=== PATIENT | male | born 1970 | race Caucasian/White ===

== ENCOUNTER 2023-11-29 09:20 | Outpatient (OUT) | payer OTHER, SELFPAY ==
--- NOTE | 2023-11-29 09:31 | MR_ITS ---
[address] [address] Patient Name: JENARO EVANS MRN: [facility]:[id number] date: 1970 Sex: M Assigned Patient Location: MRI Current Patient Location: MRI Accession/Order Number: [id number] Exam Date: 11/29/2023 09:40 Report Date: 11/29/2023 10:41 At the request of: TYE RENE Procedure: MR cervical spine wo con EXAMINATION: MR cervical spine wo con HISTORY: Degenerative Disc Disease Cervical M50.30 COMPARISON: No relevant comparison available. TECHNIQUE: A variety of imaging planes and parameters were utilized for visualization of suspected pathology. FINDINGS: CRANIOCERVICAL AREA: Normal foramen magnum with no Chiari malformation. PARASPINAL AREA: Normal with no visible mass. BONES: Reversal of normal cervical lordosis. Signal dropout consistent with anterior metallic hardware fusion C5-C6 CORD: Normal caliber, contour, and signal intensity. CERVICAL DISC LEVELS: C2-C3: Early degenerative disc disease is present without focal protrusion or neural impingement. C3-C4: Early degenerative disc disease is present without focal protrusion or neural impingement. C4-C5: Early degenerative disc disease is present without focal protrusion or neural impingement. C5-C6: Anterior fusion with resultant metallic susceptibility artifact. Mild posterior disc/osteophyte complex no central canal or right foraminal stenosis. Moderate narrowing of the left neural foramen secondary to degenerative facet osteoarthropathy C6-C7: Moderate to severe disc space narrowing and disc desiccation. Moderate diffuse disc/osteophyte complex. Moderate to severe bilateral foraminal stenosis. Mild narrowing of the central canal down to 8.5 mm in anterior posterior dimension C7-T1:. No significant disc/facet abnormality, spinal stenosis, or foraminal stenosis. MR/MR cervical spine wo con IMPRESSION: Degenerative changes C5-C6 and C6-C7. This results in moderate to severe bilateral C6-C7 foraminal stenosis Electronically authenticated by: JERED STERN Date: 11/29/2023 10:41
== END 2023-11-29 09:21 | disposition home or self-care (01) ==
LOC: MRI 09:23
PROVIDERS: PCP Nurse Practitioner; Visit Provider Nurse Practitioner
DX: M50.30 Other cervical disc degeneration, unspecified cervical region (principal); M50.322 Other cervical disc degeneration at C5-C6 level; M50.323 Other cervical disc degeneration at C6-C7 level
CPT/HCPCS: 72141

== ENCOUNTER 2023-12-26 09:17 | Outpatient (OUT) | payer OTHER, SELFPAY ==
--- NOTE | 2023-12-26 09:20 | CT_ITS ---
The [address] [address] Patient Name: JENARO EVANS MRN: [facility]:[id number] date: 1970 Sex: M Assigned Patient Location: CT Current Patient Location: CT Accession/Order Number: [id number] Exam Date: 12/26/2023 09:30 Report Date: 12/26/2023 14:42 At the request of: YTE RENE Procedure: CT chest wo con EXAMINATION: CT chest wo con HISTORY: lung nodule R91.1 COMPARISON: 09/21/2022, 01/13/2022 TECHNIQUE: Multi-planar CT images were created with IV contrast. Axial, Coronal, and Sagittal images. Dose reduction techniques were achieved by using automated exposure control and/or adjustment of mA and/or kV according to patient size and/or use of iterative reconstruction technique. FINDINGS: LUNGS: Stable nodular and linear opacity in the medial left upper lobe stable in size and configuration from the prior exam. Mild paraseptal emphysema with an upper lobe predominance. No new significant pulmonary nodule or mass PLEURA: No mass, effusion, or pneumothorax. VASCULATURE: No abnormality. MICHELLE: No mass or adenopathy. MEDIASTINUM: No mass or adenopathy. CARDIAC: No enlargement or pericardial effusion. Mild coronary atherosclerosis AORTA: Aneurysm of the ascending thoracic aorta measuring 4.1 cm in diameter CHEST WALL: No mass or axillary adenopathy. BONES: No bone lesion or fracture. LIMITED ABDOMEN: Bilateral low-density adrenal masses, stable OTHER: Negative. CT/CT chest wo con IMPRESSION: Stable left upper lobe nodular and linear pulmonary density. Lack of foreign exchange student coordinator the course of nearly 2 years suggests a benign process Electronically authenticated by: JERED STERN Date: 12/26/2023 14:42
--- OUTSIDE RECORDS SUMMARY | 2023-12-26 09:21 | XMS_ITS | CCD ---
Author Name Unknown Address [address] [place] [address] Organization [facility] Care Team Providers Care Aircraft Dispatcher Name Role Phone Unavailable Primary Care Provider UnavailFABIÁN Siegel Referring Unavailable FABIÁN CAMPBELL Admitting Unavailable FABIÁN CAMPBELL Attending Unavailable MARYLIN MORALES Primary Care Unavailable Marylin Morales Primary Care Provider Cally Roy Unavailable NO FAMILY, PHYSICIAN Primary Care Provider Unava ilable FLORENCIO Roy Attending Provider AICHHOLZ, LOAN EXAMINER MARYLIN Admitting Unavailable AICHHOLZ, LOAN EXAMINER MARYLIN Attending Unavailable AICHHOLZ, LOAN EXAMINER MARYLIN Primary Care Unavailable DR JERED STERN V Consulting Unavailable AICHHOLZ, LOAN EXAMINER MARYLIN Consulting Unavailable AICHHOLZ, LOAN EXAMINER MARYLIN Admitting Unavailable AICHHOLZ, LOAN EXAMINER MARYLIN Attending Unavailable AICHHOLZ, LOAN EXAMINER MARYLIN Primary Care Unavailable DR JERED STERN V Consulting Unavailable AICHHOLZ, LOAN EXAMINER MARYLIN Consulting Unavailable AICHHOLZ, LOAN EXAMINER MARYLIN Admitting Unavailable AICHHOLZ, LOAN EXAMINER MARYLIN Attending Unavailable AICHHOLZ, LOAN EXAMINER MARYLIN Primary Care Unavailable AICHHOLZ, LOAN EXAMINER MARYLIN Consulting Unavailable DR CHAPARRO RIVER Consulting Unavailable AICHHOLZ, LOAN EXAMINER MARYLIN Primary Care Unavailable DR ELIJAH ANDREW Admitting UnavailDR ELIJAH Burciaga Attending UnavailDR KRISTIN Clement JR Admitting Unavailrohini GRACE JR, DR KRISTIN Hardy Attending Unavailabl e AICHHOLZ, LOAN EXAMINER MARYLIN Primary Care Unavailable GRACE JR, DR KRISTIN L Consulting Unavailabl e ORALIA MORALES MARYLIN Admitting Unavailable ORALIA MORALES MARYLIN Attending Unavailable ORALIA MORALES Primary Care Unavailable ORALIA MORALESA Consulting Unavailable DR CHAPARRO RIVER Consulting Unavailable Clara Solano Unavailable Cally Roy Attending Unavailable Cally Roy Admitting Unavailable NO FAMILY, PHYSICIAN Primary Care Unavailable MARYLIN MORALES Attending Unavailable MARYLIN MORALES Attending Unavailable Cherelle [employer] FRY COOK-ORALIA, Marylin Primary Care Provider Terrance Davis MD Primary Care Provider [phone] Carmen PILLAR WORKER, Marylin Unavailable SAV ROCHA Referring Unavailable MARYLIN VILLARREAL Primary Care Unavailable JULES AYALA Attending Unavailable TAYLOR ANDUJAR Referring Unavailable MARYLIN VILLARREAL Primary Care Unavailable Medications Current Medications Medication Drug Class(es) Dates Sig (Normalized) Sig (Original) acetaminophen 500 mg oral tablet (1 source) take 1 tablet by mouth every six hours as needed for pain acetaminophen (TYLENOL) 500 MG tablet Take 500 mg by mouth every 6 hours as needed for Pain 0 Active cyclobenzaprine hydrochloride 5 mg oral tablet (1 source) Muscle Relaxant Start: 06-28-2022 take 1 tablet by mouth every eight hours Cyclobenzaprine HCl 5 MG 1 tablet as needed Orally Three times a day Jun, Active diazePAM (1 source) Benzodiazepine Valium Active twice-daily diclofenac epolamine 0.013 mg/mg medicated patch (2 sources) Nonsteroidal Anti-inflammatory Drug diclofenac epolamine (FLECTOR) 1.3 % patch [address] 1 patch on the skin. 0 Active docusate sodium 50 mg / sennosides, longterm 8.6 mg oral tablet (2 sources) Start: 01-15-2020 take 1 tablet by mouth twice daily sennosides-docusate sodium (SENOKOT-S) 8.6-50 MG tablet Take 1 tablet by mouth 2 times daily 60 tablet 0 01/15/2020 Active Start: 01-14-2020 take 1 tablet by kourtney twice daily 1 tablet, Oral, 2 TIMES DAILY, First dose on Tue01/14/20 at 2100, Post-op gabapentin 300 mg oral capsule (10 sources) Anti-epileptic Agent Start: 01-15-2020 take 600 mg by mouth once daily before breakfast 600 mg, Oral, DAILY BEFORE BREAKFAST, First dose on Tue01/15/20 at 0700, Post-op Start: 01-14-2020 take 1200 mg by mouth once blanca ly 1,200 mg, Oral, NIGHTLY, First dose on Tue01/14/20 at 2100, Post-op take 6 capsules by [facility] three times daily gabapentin (NEURONTIN) 100 mg capsule Take 6 capsules (600 mg total) by mouth 3 (three) times a day. 0 Active take 1 tablet by kourtney th in the morning gabapentin (Neurontin) 600 MG tablet Take 600 mg by mouth in the morning. 0 Active take 1 capsule by mo ut three times daily gabapentin (NEURONTIN) 100 mg capsule Take 100 mg by mouth 3 (three) times a day. 0 Active take 2 tablets by mo [facility] once daily gabapentin (NEURONTIN) 600 MG tablet Take 1,200 mg by mouth nightly. 0 Active HYDROmorphone (DILAUDID) injection 0.25 mg (1 source) Start: 01-14-2020 HYDROmorphone (DILAUDID) injection 0.25 mg ibuprofen 800 mg oral tablet (5 sources) Nonsteroidal Anti-inflammatory Drug take 1 tablet by mouth every six hours as needed for pain ibuprofen (ADVIL,MOTRIN) 800 mg tablet Take 1 tablet (800 mg total) by mouth every 6 (six) hours as needed for pain. 0 Active Motrin Active take 1 tablet by mouth once santhosh y ibuprofen (ADVIL;MOTRIN) 800 MG tablet Take 800 mg by mouth daily 0 Active methylPREDNISolone 4 mg oral tablet (1 source) Corticosteroid Start: 06-28-2022 methylPREDNISolone 4 MG as directed Orally Once a day for 6 days Jun, Active 24 hr nicotine 0.583 mg/hr transdermal system (1 source) Cholinergic Nicotinic Agonist Start: 01-14-2020 nicotine (NICODERM CQ) 14 MG/24HR 1 patch NONFORMULARY (1 source) NONFORMULARY Fernando e by mouth daily testosterone 0 Active 2 ml ondansetron 2 mg/ml injection (2 sources) Serotonin-3 Receptor Antagonist Start: 01-14-2020 End: 01-14-2020 ondansetron (ZOFRAN) injection 4 mg oxyCODONE hydrochloride 20 mg oral tablet (8 sources) Opioid Agonist Start: 01-14-2020 take 20 mg by mouth every four hours as needed for pain 20 mg, Oral, EVERY 4 HOURS PRN, Pain Moderate (4-6), Pain Severe (7-10), Starting Tue01/14/20 at 1443, Post-op take 1 tablet by mouth once oxyC ODONE (OxyCONTIN) 20 mg 12 hr tablet Take 1 tablet (20 mg total) by mouth every 12 (twelve) hours. 0 Active oxyCODONE ER (Ox yCONTIN) 20 MG 12 hr tablet 20 mg in the morning and 20 mg at noon and 20 mg in the evening and 20 mg before bedtime. Do not crush, chew, or split.. 0 Active take 1 tablet by mouth every six hours oxyCODONE HCl 20 MG 1 tablet as needed Orally 4 times a day Active take 1 tablet by mouth four time s daily oxyCODONE (OXY-IR) 15 MG immediate release tablet Take 15 mg by mouth 4 times daily. 0 Active polyethylene glycol 3350 62112 mg powder for oral solution (1 source) Osmotic Laxative Start: 01-14-2020 17 g, Oral, D AILY, First dose on Tue01/14/20 at 2100, Post-op predniSONE 20 mg oral tablet (2 sources) Start: 11-22-2023 predniSONE (De ltasone) 20 MG tablet Indications: DDD (degenerative disc disease), cervical 1 pill three times daily for 3 days, then 1 pill twice a day for 3 days, then 1 pill once day for 3 days Take with food 18 tablet 0 11/22/2023 Active predniSONE Activ e QUEtiapine 25 mg oral tablet (1 source) Atypical Antipsychotic take 1 tablet by mouth at bedtime QUEtiapine (SEROquel) 25 MG tablet Take 25 mg by mouth at bedtime 0 Active 3 ml sodium chloride 9 mg/ml injection (3 sources) Start: 0 10 mL, Intravenous, EVERY 12 HOURS SCHEDULED (2 times per day), First dose on Tue01/14/20 at 2100, Post-op Start: 01-14-2020 Intravenous, a t 75 mL/hr, CONTINUOUS, Starting Tue01/14/20 at 1500, Post-op Start: 01-14-2020 take 10 mL intravenous route o nce 10 mL, Intravenous, PRN, Line Care, Starting 01/14/20 at 1443 After every IV line use Post-op tiZANidine 4 mg oral tablet (3 sources) Central alpha-2 Adrenergic Agonist Start: 11-22-2023 take 1 tablet by mouth once tiZANidine (Zanaflex) 4 MG tablet Indications: Musculoskeletal Pain Take 1 tablet (4 mg) by mouth every 12 (twelve) hours if needed for muscle spasms for up to 15 days May cause drowsiness 30 tablet 0 11/22/2023 Active Start: 01-15-2020 take 1 tablet by kourtney th every eight hours as needed for muscle spasms tiZANidine (ZANAFLEX) 4 MG tablet Take 1 tablet by mouth every 8 hours as needed (spasm) 50 tablet 0 01/15/2020 Active Start: 01-14-2020 take 4 mg by mouth e very eight hours as needed for muscle spasms 4 mg, Oral, EVERY 8 HOURS PRN, Muscle spasms, Starting 01/14/20 at 1443, Post-op Wrist Splint/Right XL - (1 source) Start: 10-04-2022 Wrist Splint/R ight XL - as directed diagnosis: carpal tunnel right wrist Sep, Active Completed/Discontinued Medications Medication Drug Class(es) Dates Sig (Normalized) Sig (Original) calcium chloride 0.0014 meq/ml / potassium chloride 0.004 meq/ml / sodium chloride 0.103 meq/ml / sodium lactate 0.028 meq/ml injectable solution (1 source) Start: 01-14-2020 End: 01-14-2020 lactated ringers infusion ceFAZolin (ANCEF) 2 g in dextrose 5 % 50 mL IVPB (1 source) Start: 01-14-2020 End: 01-15-2020 2 g, Intravenous, EVERY 8 HOURS, 2 doses, First dose on Tue01/14/20 at 1600, Last dose on Tue01/15/20 at 0000, Post-op dexamethasone phosphate 10 mg/ml injectable solution (1 source) Corticosteroid Start: 01-14-2020 End: 01-15-2020 6 mg, Intravenous, EVERY 8 HOURS, First dose on Tue01/14/20 at 1500, For 3 doses, Post-op 2 ml fentaNYL 0.05 mg/ml injection (1 source) Opioid Agonist Start: 01-14-2020 End: 01-14-2020 fentaNYL (SUBLIMAZE) injection 50 mcg 1 ml HYDROmorphone hydrochloride 2 mg/ml cartridge (3 sources) Opioid Agonist Start: 01-14-2020 End: 01-14-2020 HYDROmorphone (DILAUDID) injection 0.5 mg Start: 01-14-2020 End: 01-14-2020 HYDROmorphone (DILAUDID) inj ection 0.5 mg Start: 01-14-2020 End: 01-14-2020 HYDROmorphone (DILAUDID) 2 M G/ML injection 2 ml metoclopramide 5 mg/ml prefilled syringe (2 sources) Dopamine-2 Receptor Antagonist Start: 01-14-2020 End: 01-14-2020 metoclopramide (REGLAN) injection 10 mg Start: 01-14-2020 End: 01-14-2020 metoclopramide (REGLAN) 5 MG /ML injection Problems Active Problems Problem Classification Problem Date Documented Date Episodic/Chronic Abdominal pain (4 sources) Generalized abdominal pain; Translations: [GENERALIZED ABDOMINAL PAIN] Onset: 08-04-2022 Episodic Acute bronchitis (2 sources) Acute bronchitis; Translations: [Acute bronchitis] Episodic Open wounds of extremities (1 source) Laceration without foreign body of right thumb without damage to nail, subsequent encounter; Translations: [Laceration without foreign body of right thumb without damage to nail, subsequent encounter] Onset: 10-14-2023 Episodic Osteoarthritis (2 sources) Arthritis of acromioclavicular joint; Translations: [Primary osteoarthritis, left shoulder] Chronic Other connective tissue disease (1 source) Weakness of left hand; Translations: [Other symptoms and signs involving the musculoskeletal system] 12-16-2023 Episodic Other connective tissue disease (1 source) Other symptoms and signs involving the musculoskeletal system; Translations: [Other symptoms and signs involving the musculoskeletal system] Onset: 12-16-2023 Episodic Other endocrine disorders (4 sources) Other specified disorders of adrenal gland; Translations: [OTHER SPEC DISORDERS ADRENAL GLAND] Onset: 11-20-2021 Chronic Other lower respiratory disease (1 source) Nodule of lung; Translations: [Solitary pulmonary nodule] Onset: 12-15-2023 12-15-2023 Episodic Other nervous system disorders (1 source) Carpal tunnel syndrome of right wrist; Translations: [Carpal tunnel syndrome, right upper limb] Chronic Other nervous system disorders (1 source) Carpal tunnel syndrome, right upper limb Chronic Other nervous system disorders (1 source) Carpal tunnel syndrome of left wrist; Translations: [Carpal tunnel syndrome, left upper limb] 12-16-2023 Chronic Other nervous system disorders (2 sources) Lesion of ulnar nerve, left upper limb; Translations: [Lesion of ulnar nerve] Onset: 12-16-2023 12-16-2023 Chronic Other nervous system disorders (1 source) Carpal tunnel syndrome, left upper limb; Translations: [Carpal tunnel syndrome, left upper limb] Onset: 12-16-2023 Chronic Other nervous system disorders (1 source) Paresthesia of left upper limb; Translations: [Paresthesia of skin] 12-16-2023 Episodic Other nervous system disorders (1 source) Paresthesia of skin; Translations: [Paresthesia of skin] Onset: 12-16-2023 Episodic Other non-traumatic joint disorders (2 sources) Finding of shoulder joint; Translations: [Other specific joint derangements of left shoulder, not elsewhere classified] Chronic Other nutritional; endocrine; and metabolic disorders (1 source) Overweight in adulthood with body mass index of 25 or more but less than 30; Translations: [Body mass index (BMI) 25.0-25.9, adult] Onset: 11-22-2023 11-22-2023 Episodic Other screening for suspected conditions (not mental disorders or infectious disease) (4 sources) Abnormal findings on diagnostic imaging of other specified body structures; Translations: [ABNORML FIND DX IMG OTH BODY STRUC] Onset: 09-21-2022 Chronic Other upper respiratory infections (2 sources) Chronic maxillary sinusitis; Translations: [Chronic maxillary sinusitis] Chronic Residual codes; unclassified (1 source) Tobacco user; Translations: [Tobacco use] Onset: 11-22-2023 11-22-2023 Episodic Spondylosis; intervertebral disc disorders; other back problems (3 sources) Cervical spondylosis with radiculopathy; Translations: [Degeneration of cervical intervertebral disc] Onset: 01-14-2020 01-14-2020 Chronic Superficial injury; contusion (3 sources) Contusion of right thumb without damage to nail, initial encounter; Translations: [Contusion of right wrist, initial encounter] Onset: 12-01-2023 Episodic Thyroid disorders (1 source) Thyroiditis, unspecified; Translations: [THYROIDITIS UNSPECIFIED] Onset: 01-15-2022 Chronic Unclassified (1 source) Pain in right hand; Translations: [Pain in right hand] Onset: 06-28-2022 Unclassified (1 source) New Patient Onset: 12-16-2023 Past or Other Problems Problem Classification Problem Date Documented Da te Episodic/Chronic Calculus of urinary tract (1 source) Calculus of kidney; Translations: [CALCULUS OF KIDNEY] Onset: 11-26-2021 Episodic Other connective tissue disease (1 source) Pain in right hand Onset: 06-28-2022 Resolved: 06-28-2022 Episodic Other connective tissue disease (3 sources) Other specified soft tissue disorders; Translations: [OTHER SPEC SOFT TISSUE DISORDERS] Onset: 09-30-2021 Episodic Other nutritional; endocrine; and metabolic disorders (4 sources) Abnormal weight loss; Translations: [ABNORMAL WEIGHT LOSS] Onset: 01-13-2022 Episodic Residual codes; unclassified (1 source) Procedure and treatment not carried out due to patient leaving prior to being seen by health care provider; Translations: [PROC AND TX NOT CARRIED OUT PT LEAVE] Onset: 10-02-2021 Episodic Results Test Name Value Interpretation Reference Range Facility CT CHEST WO CONon 09-22-2022 CT CHEST WO CON EXAMINATION: CT CHES T WO CON HISTORY: Imaging result abnormal ; weight loss, follow-up abnormal chest CT COMPARISON: CT chest 03/19/2022, 01/13/2022 TECHNIQUE: Axial, Coronal, and Sagittal images were created without the administration of IV contrast material. Dose reduction techniques were achieved by using automated exposure control and/or adjustment of mA and/or kV according to patient size and/or use of iterative reconstruction technique. FINDINGS: LUNGS: Stable stranding versus spiculated nodules within medial left lung apex. Lungs are otherwise clear. PLEURA: No mass, effusion, or pneumothorax. VASCULATURE: No abnormality. MICHELLE: No mass or adenopathy. MEDIASTINUM: No mass or adenopathy. CARDIAC: No enlargement or pericardial thickening. AORTA: No aneurysm or dissection. CHEST WALL: No mass or axillary adenopathy. BONES: No bone lesion or fracture. LIMITED ABDOMEN: Bilateral adrenal masses, largest is on left, 4.7 cm. Both contain areas of fat density favoring benign adenomas. Limited images of the upper abdomen. OTHER: Negative. IMPRESSION: 1. Stable small area of spiculation/stranding within right lung apex suspected to represent scarring. Consider follow-up CT chest without contrast in 15 months to document stability over a two-year period which would then suggest this is a benign process. 2. Bilateral adrenal masses favoring benign adenomas. Electronically authenticated by: CHAPARRO RIVER Date: 2022-09-22 12:02 Normal [facility] CBC AUTO DIFFon 08-04-2022 BASO # 0.1 103/ul Normal 0.0-0.1 [facility] Comment on above: Performed By: #### C BC #### [facility] [address] [address] [address] April Raman Basophils/100 WBC (Bld) 0.6 % Normal 0.2-2.0 [facility] Comment on above: Performed By: #### C BC #### [facility] [address] [address] [address] April Raman EO # 0.2 103/ul Normal 0.0-0.7 [facility] Comment on above: Performed By: #### C BC #### [facility] [address] [address] [address] April Raman Eosinophils/100 WBC (Bld) 1.8 % Normal 0.9-7.0 [facility] Comment on above: Performed By: #### C BC #### [facility] [address] [address] [address] April Raman Erythrocyte distribution width (RBC) [Ratio] 12.9 % Normal 11.0-15.0 [facility] Comment on above: Performed By: #### C BC #### [facility] [address] [address] [address] April Raman Hematocrit (Bld) [Volume fraction] 39.1 % Critically low 42.0-54.0 [facility] Comment on above: Performed By: #### C BC #### [facility] [address] [address] [address] April Raman Hemoglobin (Bld) [Mass/Vol] 13.4 g/dL Critically low 14.0-18.0 [facility] Comment on above: Performed By: #### C BC #### [facility] [address] [address] [address] April Raman IG # 0.03 10e3/ul Normal 0.00-0.03 [facility] Comment on above: Performed By: #### C BC #### [facility] [address] [place] [address] Dr. April Raman IG % 0.3 % Normal 0.0-0.5 [facility] Comment on above: Performed By: #### C BC #### [facility] [address] [place] [address] Dr. April Raman LYMPH # 2.5 103/ul Normal 1.2-3.8 [facility] Comment on above: Performed By: #### C BC #### [facility] [address] [place] [address] Dr. April Raman Lymphocytes/100 WBC (Bld) 28.3 % Normal 20.5-60.0 [facility] Comment on above: Performed By: #### C BC #### [facility] [address] [place] [address] Dr. April Raman MANUAL DIFF REQ NO Normal [facility] Comment on above: Performed By: #### C BC #### [facility] [address] [place] [address] Dr. April Raman MCH (RBC) [Entitic mass] 31.2 pg Normal 25.9-34.0 [facility] Comment on above: Performed By: #### C BC #### [facility] [address] [place] [address] Dr. April Raman MCHC (RBC) [Mass/Vol] 34.3 g/dL Normal 29.9-35.2 [facility] Comment on above: Performed By: #### C BC #### [facility] [address] [place] [address] Dr. April Raman MCV (RBC) [Entitic vol] 90.9 fL Normal 80.0-94.0 [facility] Comment on above: Performed By: #### C BC #### [facility] [address] [address] [address] April Raman MONO # 0.5 103/ul Normal 0.3-0.8 [facility] Comment on above: Performed By: #### C BC #### [facility] [address] [address] [address] April Raman Monocytes/100 WBC (Bld) 5.2 % Normal 1.7-12.0 [facility] Comment on above: Performed By: #### C BC #### [facility] [address] [place] [address] Dr. April Raman NEUT # 5.5 103/ul Normal 1.4-6.5 [facility] Comment on above: Performed By: #### C BC #### [facility] [address] [place] [address] Dr. April Raman Neutrophils/100 WBC (Bld) 63.8 % Normal 43.0-75.0 [facility] Comment on above: Performed By: #### C BC #### [facility] [address] [place] [address] Dr. April Raman Platelet mean volume (Bld) [Entitic vol] 9.2 fL Critically low 9.5-13.5 [facility] Comment on above: Performed By: #### C BC #### [facility] [address] [place] [address] Dr. April Raman PLT 219 103/ul Normal 150-450 [facility] Comment on above: Performed By: #### C BC #### [facility] [address] [place] [address] Dr. April Raman RBC 4.30 106/ul Critically low 4.70-6.10 [facility] Comment on above: Performed By: #### C BC #### [facility] [address] [place] [address] Dr. April Raman WBC 8.7 103/ul Normal 4.0-11.0 [facility] Comment on above: Performed By: #### C BC #### [facility] [address] [place] [address] Dr. April Raman CULTURE URINEon 08-04-2022 CULTURE URINE Culture Observations : NO GROWTH. Normal [facility] Comment on above: Performed By: #### F T4 #### [facility] [address] [place] [address] Dr. April Raman PROF 14(COMP METB)on 022 Albumin [Mass/Vol] 4.1 g/dL Normal 3.4-5.0 [facility] Comment on above: Performed By: #### F T4 #### [facility] [address] [place] [address] Dr. April Raman Albumin/Globulin [Mass ratio] 1.4 {ratio} Normal [facility] Comment on above: Performed By: #### F T4 #### [facility] [address] [place] [address] Dr. April Raman ALP [Catalytic activity/Vol] 86 U/L Normal 46-116 [facility] Comment on above: Performed By: #### F T4 #### [facility] [address] [place] [address] Dr. April Raman ALT [Catalytic activity/Vol] 15 U/L Critically low 16-63 [facility] Comment on above: Performed By: #### F T4 #### [facility] [address] [place] [address] Dr. April Raman Anion gap [Moles/Vol] 13.1 mmol/L Normal [facility] Comment on above: Performed By: #### F T4 #### [facility] [address] [place] [address] Dr. April Raman AST [Catalytic activity/Vol] 13 U/L Critically low 15-37 [facility] Comment on above: Performed By: #### F T4 #### [facility] [address] [place] [address] Dr. April Raman Bilirubin [Mass/Vol] 0.9 mg/dL Normal 0.2-1.0 [facility] Comment on above: Performed By: #### F T4 #### [facility] [address] [place] [address] Dr. April Raman Calcium [Mass/Vol] 8.9 mg/dL Normal 8.5-10.1 [facility] Comment on above: Performed By: #### F T4 #### [facility] [address] [place] [address] Dr. April Raman Chloride [Moles/Vol] 102 mmol/L Normal 98-107 [facility] Comment on above: Performed By: #### F T4 #### [facility] [address] [place] [address] Dr. April Raman CO2 [Moles/Vol] 27.7 mmol/L Normal 21.0-32.0 [facility] Comment on above: Performed By: #### F T4 #### [facility] [address] [place] [address] Dr. April Raman Creatinine [Mass/Vol] 0.94 mg/dL Normal 0.70-1.30 [facility] Comment on above: Performed By: #### F T4 #### [facility] [address] [place] [address] Dr. April Raman EGFR-AF BRAZILIAN >60 Normal >=60 [facility] Comment on above: Performed By: #### F T4 #### [facility] [address] [place] [address] Dr. April Raman EGFR-NON AF BRAZILIAN >60 Normal >=60 [facility] Comment on above: Performed By: #### F T4 #### [facility] [address] [place] [address] Dr. April Raman Globulin (S) [Mass/Vol] 3.0 g/dL Normal [facility] Comment on above: Performed By: #### F T4 #### [facility] [address] [place] [address] Dr. April Raman Glucose [Mass/Vol] 82 mg/dL Normal 74-106 [facility] Comment on above: Performed By: #### F T4 #### [facility] [address] [place] [address] Dr. April Raman Potassium [Moles/Vol] 3.8 mmol/L Normal 3.5-5.1 [facility] Comment on above: Performed By: #### F T4 #### [facility] [address] [address] [address] April Raman Protein [Mass/Vol] 7.1 g/dL Normal 6.4-8.2 [facility] Comment on above: Performed By: #### F T4 #### [facility] [address] [address] [address] April Raman Sodium [Moles/Vol] 139 mmol/L Normal 136-145 [facility] Comment on above: Performed By: #### F T4 #### [facility] [address] [address] [address] April Raman Urea nitrogen [Mass/Vol] 9.0 mg/dL Normal 7.0-18.0 [facility] Comment on above: Performed By: #### F T4 #### [facility] [address] [address] [address] April Raman Urea nitrogen/Creatinin e [Mass ratio] 9.6 mg/mg Normal [facility] Comment on above: Performed By: #### F T4 #### [facility] [address] [address] [address] April Raman SED RATE [facility] 2021 SED RATE 18 mm/hr Critically high <=15 [facility] Comment on above: Performed By: #### S EDR #### [facility] [address] [address] [address] April Raman UA RANDOM W/MICROSCOPICon BACTERIA NONE SEEN Normal NONE SEEN [facility] Comment on above: Performed By: #### U AMIC #### [facility] [address] [address] [address] April Raman Bilirubin Ql (U) Negative Normal NEGATIVE [facility] Comment on above: Performed By: #### U AMIC #### [facility] [address] [address] [address] April Raman CAST NONE SEEN Normal NONE SEEN [facility] Comment on above: Performed By: #### U AMIC #### [facility] [address] [address] [address] April Raman Clarity (U) CLEAR Normal CLEAR [facility] Comment on above: Performed By: #### U AMIC #### [facility] [address] [place] [address] Dr. April Raman Color (U) YELLOW Normal YELLOW [facility] Comment on above: Performed By: #### U AMIC #### [facility] [address] [address] [address] April Raman Crystals LM Nom (Urine sed) NONE SEEN Normal NONE SEEN [facility] Comment on above: Performed By: #### U AMIC #### [facility] [address] [place] [address] Dr. April Raman Epithelial cells LM Ql (Urine sed) RARE Normal NONE SEEN /RARE [facility] Comment on above: Performed By: #### U AMIC #### [facility] [address] [place] [address] Dr. April Raman Glucose Ql (U) Negative Normal NEGATIVE [facility] Comment on above: Performed By: #### U AMIC #### [facility] [address] [place] [address] Dr. April Raman Hemoglobin Ql (U) Negative Normal NEGATIVE [facility] Comment on above: Performed By: #### U AMIC #### [facility] [address] [place] [address] Dr. April Raman Ketones Ql (U) Negative Normal NEGATIVE [facility] Comment on above: Performed By: #### U AMIC #### [facility] [address] [place] [address] Dr. April Raman LEUKOCYTES Negative Normal NEGATIVE [facility] Comment on above: Performed By: #### U AMIC #### [facility] [address] [place] [address] Dr. April Raman MUCOUS NONE SEEN Normal NONE SEEN [facility] Comment on above: Performed By: #### U AMIC #### [facility] [address] [place] [address] Dr. April Raman Nitrite Ql (U) Negative Normal NEGATIVE [facility] Comment on above: Performed By: #### U AMIC #### [facility] [address] [address] [address] April Raman pH (U) 6.0 [pH] Normal 5-9 [facility] Comment on above: Performed By: #### U AMIC #### [facility] [address] [address] [address] April Raman RBC NONE SEEN Abnormal 0-2 [facility] Comment on above: Performed By: #### U AMIC #### [facility] [address] [address] [address] April Raman SPEC GRAVITY 1.025 Normal 1.005-<=1.025 [facility] Comment on above: Performed By: #### U AMIC #### [facility] [address] [address] [address] April Raman UA PROTEIN Negative Normal NEGATIVE/ TRACE [facility] Comment on above: Performed By: #### U AMIC #### [facility] [address] [address] [address] April Raman Urobilinogen Qn (U) 0.2 {Bobbi'U}/dL Normal 0.2 - 1.0 [facility] Comment on above: Performed By: #### U AMIC #### [facility] [address] [address] [address] April Raman WBC NONE SEEN Normal NONE SEEN [facility] Comment on above: Performed By: #### U AMIC #### [facility] [address] [place] [address] Dr. April Raman XR ABD FLAT_UPon 08-04-2022 XR ABD FLAT_UP EXAMINATION: XR ABD FLAT_UP HISTORY: Abdominal colic COMPARISON: No relevant comparison available. FINDINGS: BOWEL GAS PATTERN: Non-obstructed.r mildly dilated small bowel loops in the left mid abdomen measuring up to 3 cm FREE AIR: None. CALCIFICATIONS: None significant. BONES: No fracture or visible bone lesion. Bilateral transpedicular fusion L4-S1 with interbody spacers OTHER: Negative. IMPRESSION: Nonobstructive bowel gas pattern with mildly dilated small bowel loops. Consider an enteritis Electronically authenticated by: JERED STERN Date: 2022-08-04 19:43 Normal [facility] XR hand RT min 3V*on 022 XR hand RT min 3V* [facility] [place] [address] [place] [id number] XRay Report Signed Patient: Jenaro Carrera MR#: [id number] : 1970 Acct:[id number] Age/Sex: 51 / M ADM Date: 06/28/22 Loc: XDUCLY Room: Type: [facility] Attending Dr: Cally MATIAS Copies to: CALLY ROY Ordering Provider: CALLY ROY Date of Service: 06/28/22 XR/XR hand RT min 3V*: Pain in right hand XR hand RT min 3V* 06/28/2022 10:30 AM SIGNS AND SYMPTOMS: Pain and swelling distal aspect of the third through fifth metacarpals PROTOCOL: Frontal, lateral, and oblique radial graphs of the right hand COMPARISON: None FINDINGS: The bones are in anatomic alignment. The joint spaces are preserved. There is no evidence of fracture or dislocation. No significant soft tissue swelling is noted. XR/XR hand RT min 3V* IMPRESSION: No acute bony injury or significant soft tissue swelling. Impression dictated by: Garrett Crow M.D.06/28/2022 11:04 AM Dictation Location: [place] [address] Transcribed By: [facility] 06/28/22 1104 Dictated By: Garrett Crow II, MD 06/28/22 1103 Signed By: 06/28/22 1104 Normal [facility] CT CHEST W CONon 03-19-2022 CT CHEST W CON EXAMINATION: CT CHES T W CON HISTORY: Imaging result abnormal COMPARISON: 01/13/2022 TECHNIQUE: Multi-planar CT images were created with IV contrast. Axial, Coronal, and Sagittal images. Dose reduction techniques were achieved by using automated exposure control and/or adjustment of mA and/or kV according to patient size and/or use of iterative reconstruction technique. FINDINGS: LUNGS: Areas of ill-defined spiculated density noted in the left upper lobe stable from the prior exam. The largest area is identified on axial image 24 measuring 1.7 x 0.7 cm in size. Stable density in the right major fissure measuring 8 x 3 mm axial image 59. No new focal pulmonary nodule or mass. Mild atelectasis. Mild left apical paraseptal emphysema PLEURA: No mass, effusion, or pneumothorax. VASCULATURE: Normal postcontrast opacification of the central pulmonary arterial tree with no filling defect MICHELLE: No mass or adenopathy. MEDIASTINUM: No mass or adenopathy. CARDIAC: No enlargement, pericardial thickening, or significant calcification. AORTA: No aneurysm or dissection. CHEST WALL: No mass or axillary adenopathy. BONES: No bone lesion or fracture. LIMITED ABDOMEN: Bilateral adrenal hypodensities, stable, 3 cm in the right and 4.3 cm on the left OTHER: Negative. IMPRESSION: Stable bilateral pulmonary nodules. Six-month follow-up recommended Electronically authenticated by: JERED STERN Date: 2022-03-19 11:57 Normal [facility] Provider Letteron 01-19-2022 Provider Letter (Inserted Image. Isabelle ble to display) January 19, 2022 JENARO CARRERA [address] [place] [address] [address] [place] [address] JENARO CARRERA 1970 Dear Jenaro , This letter is to inform you that you have missed at least two appointments in our office within a twelve-month period which you did not cancel. According to our records those missed appointments were on: November 24, 2021 and January 19, 2022 We make every effort to accommodate patients as quickly as possible. If we know you are not able to make an appointment, we can schedule another patient who needs to see one of our providers. Sincerely, [facility] [address], [place] [address] [facility], [facility] Normal [facility] THYROID ANTIBODIESon 022 Thyroglobulin Antibody <1.0 Normal 0.0-0.9 [facility] Comment on above: Result Comment: Thyr oglobulin Antibody measured by [employer] Methodology Performed By: #### T HYALICIA #### [facility] [address] [address] [address] April Raman Thyroid Peroxidase (TPO) Ab 54 IU/mL Critically high 0-34 [facility] Comment on above: Performed By: #### T HYRABS #### [facility] [address] [address] [address] CHEST W CONon 01-13-2022 CT CHEST W CON EXAMINATION: CT CHES T W CON HISTORY: Abnormal weight loss ; unintentional weight loss COMPARISON: No relevant comparison available. TECHNIQUE: Multi-planar CT images were created with IV contrast. Axial, Coronal, and Sagittal images. Dose reduction techniques were achieved by using automated exposure control and/or adjustment of mA and/or kV according to patient size and/or use of iterative reconstruction technique. FINDINGS: LUNGS: 2 small areas of spiculated stranding within the medial aspect of the left upper lobe superior segment. PLEURA: No mass, effusion, or pneumothorax. VASCULATURE: No abnormality. MICHELLE: No mass or adenopathy. MEDIASTINUM: No mass or adenopathy. CARDIAC: No enlargement, pericardial thickening, or significant calcification. AORTA: No aneurysm or dissection. CHEST WALL: No mass or axillary adenopathy. BONES: No bone lesion or fracture. LIMITED ABDOMEN: Stable large adrenal nodules bilaterally containing areas of fat density consistent with benign adenomas. Limited images of the upper abdomen. OTHER: Negative. IMPRESSION: 1. There are 2 small areas of spiculated stranding within the left upper lobe; scarring versus neoplasm versus infection. Scarring is suspected. Consider follow-up CT imaging of the chest in 2 months to document stability. 2. Stable bilateral adrenal nodules favoring benign adenomas. Electronically authenticated by: CHAPARRO RIVER Date: 2022-01-13 15:57 Normal [facility] FREE T3on 01-13-2022 FREE T3 2.22 pg/mlL Critically low 2.77-5.27 [facility] Comment on above: Performed By: #### F T4 #### [facility] [address] [address] [address] April Raman FREE T4on 01-13-2022 Free T4 [Mass/Vol] 0.84 ng/dL Normal 0.78-2.19 [facility] Comment on above: Performed By: #### F T4 #### [facility] [address] [address] [address] April Raman TSHon 01-13-2022 TSH 3.928 uIU/mL Normal 0.470-4.680 [facility] Comment on above: Performed By: #### F T4 #### [facility] [address] [address] [address] April Raman TSH RANGE SEE BELOW Normal [facility] Comment on above: Result Comment: <0.3 4 UIU/ml HYPERTHYROID 0.34-5.60 UIU/ml EUTHYROID >5.60 UIU/ml HYPOTHYROID Performed By: #### F T4 #### [facility] [address] [address] [address] April Raman Lab Reportson 11-25-2021 Lab Reports [id number]#[id number]:12 7 Normal [facility] Lab Reports [id number]#[id number]:12 7 Normal [facility] Provider Letteron 11-24-2021 Provider Letter November 24, 2021 November 24, 2021 JENARO CARRERA [address] [place] [address] [place] [id number] JENARO CARRERA 1970 Dear Jenaro , You missed your scheduled appointment on: November and the purpose of this letter is to inform you of our *No Show Policy*. Our appointment slots fill rapidly and when we have a no show appointment that time is lost. We could have used that time slot to care for a patient who needed to see one of our providers. Therefore, we ask that you call 24 hours in advance to cancel your appointment. This policy is in place so that we can meet the needs of all of our patients and we do appreciate your understanding. Sincerely, [facility] [address], [place] [address] Normal [facility] CITRATE URINE 24HRon 022 Citric Acid, U, 24hr 127 mg/24 hr Critically low 320-1240 [facility] Comment on above: Result Comment: This test was developed and its performance characteristics determined by [facility]. It has not been cleared or approved by the Food and Drug Administration. Performed By: #### C ITRATU #### [facility] [address] [place] [address] Dr. April Raman Citric Acid, Urine 66 mg/L Normal Undefined [facility] Comment on above: Performed By: #### C ITRATU #### [facility] [address] [address] [address] April Raman OXALATE 24HR URINEon 022 Oxalates, Urine 8 mg/L Normal Undefined [facility] Comment on above: Performed By: #### O X24HR #### [facility] [address] [place] [address] Dr. April Raman Oxalates, Urine 24hr 15 mg/24 hr Normal 7-44 [facility] Comment on above: Performed By: #### O X24HR #### [facility] [address] [place] [address] Dr. April Raman MAGNESIUM 24HR URINEon 11-21 Magnesium 24hr Urine 42.4 mg/24 hr Normal 12.0-293.0 [facility] Comment on above: Performed By: #### O X24HR #### [facility] [address] [place] [address] Dr. April Raman Magnesium UR 2.2 mg/dL Normal Not Estab. [facility] Comment on above: Performed By: #### O X24HR #### [facility] [address] [place] [address] Dr. April Raman PHOSPHORUS 24HR URINEon Phosphorus, Urine 26.0 mg/dL Normal Not Estab. [facility] Comment on above: Performed By: #### F T4 #### [facility] [address] [place] [address] Dr. April Raman Phosphorus, Urine 24hr 501 mg/24 hr Normal 390-1425 [facility] Comment on above: Performed By: #### F T4 #### [facility] [address] [place] [address] Dr. April Raman PTH INTACTon 11-21-2021 PTH, Intact 33 pg/mL Normal 15-65 [facility] Comment on above: Performed By: #### O X24HR #### [facility] [address] [place] [address] Dr. April Raman URIC ACID 24 HR URINEon Uric Acid, Urine 24.7 mg/dL Normal Not Estab. [facility] Comment on above: Performed By: #### U PUSHPA 24 #### [facility] [address] [place] [address] Dr. April Raman Uric Acid, Urine 24hr 475.5 mg/24 hr Normal 197.2-1078.7 [facility] Comment on above: Performed By: #### U PUSHPA 24 #### [facility] [address] [place] [address] Dr. April Raman BUNon 11-20-2021 Urea nitrogen [Mass/Vol] 14.0 mg/dL Normal 9.0-20.0 [facility] Comment on above: Performed By: #### O X24HR #### [facility] [address] [place] [address] Dr. April Raman CALCIUMon 11-20-2021 Calcium [Mass/Vol] 8.8 mg/dL Normal 8.4-10.2 [facility] Comment on above: Performed By: #### O X24HR #### [facility] [address] [place] [address] Dr. April Raman CALCIUM 24 HR URINEon 2021 CALC, 24 HR UR 61.6 mg/24 hr Critically low 100.0-300.0 [facility] Comment on above: Performed By: #### C ALC24U #### [facility] [address] [place] [address] Dr. April Raman UR CALCIUM 3.2 mg/dL Normal 0.0-21.0 [facility] Comment on above: Performed By: #### C ALC24U #### [facility] [address] [place] [address] Dr. April Raman UR TOT VOL 1925 ml/24 HR Normal [facility] Comment on above: Performed By: #### C ALC24U #### [facility] [address] [place] [address] Dr. April Raman Performed By: #### C REA24U, NA24U #### [facility] [address] [place] [address] Dr. April Raman Performed By: #### F T4 #### [facility] [address] [place] [address] Dr. April Raman CHLORIDEon 11-20-2021 Chloride [Moles/Vol] 104 mmol/L Normal 98-107 [facility] Comment on above: Performed By: #### O X24HR #### [facility] [address] [place] [address] Dr. April Raman CO2on 11-20-2021 CO2 [Moles/Vol] 31.8 mmol/L Critically high 22.0-30.0 [facility] Comment on above: Performed By: #### O X24HR #### [facility] [address] [place] [address] Dr. April Raman CREA 24 HR URINEon 2 CREA, 24 HR UR 1377.14 mg/24 hr Normal 1,000.00- 2,000 .00 [facility] Comment on above: Performed By: #### F T4 #### [facility] [address] [place] [address] Dr. April Raman URINE CREAT 71.54 mg/dL Normal 20.00-300.00 [facility] Comment on above: Performed By: #### F T4 #### [facility] [address] [place] [address] Dr. April Raman CREATININEon 11-20-2021 Creatinine [Mass/Vol] 0.98 mg/dL Normal 0.66-1.25 [facility] Comment on above: Performed By: #### O X24HR #### [facility] [address] [place] [address] Dr. April Raman EGFR-AF BRAZILIAN >60 Normal >=60 [facility] Comment on above: Performed By: #### O X24HR #### [facility] [address] [place] [address] Dr. April Raman EGFR-NON AF BRAZILIAN >60 Normal >=60 [facility] Comment on above: Performed By: #### O X24HR #### [facility] [address] [place] [address] Dr. April Raman NAon 11-20-2021 Sodium [Moles/Vol] 141 mmol/L Normal 137-145 [facility] Comment on above: Performed By: #### O X24HR #### [facility] [address] [place] [address] Dr. April Raman POTASSIUMon 11-20-2021 Potassium [Moles/Vol] 4.0 mmol/L Normal 3.4-5.0 [facility] Comment on above: Performed By: #### O X24HR #### [facility] [address] [place] [address] Dr. April Raman SODIUM 24 HR URINEon 022 NA, 24 HR UR 116 mmol/24 hr Normal 40-220 [facility] Comment on above: Performed By: #### C REA24U, NA24U #### [facility] [address] [place] [address] Dr. April Raman Sodium (U) [Moles/Vol] 60 mmol/L Normal 30-90 [facility] Comment on above: Performed By: #### C REA24U, NA24U #### [facility] [address] [place] [address] Dr. April Raman URIC ACID SERUMon 11-20-2021 Urate [Mass/Vol] 4.2 mg/dL Normal 3.5-8.5 [facility] Comment on above: Performed By: #### O X24HR #### [facility] [address] [place] [address] Dr. April Raman RAD - CT Reporton 09-07-2021 RAD - CT Report [id number]:12 7 [facility] Clinical Summaryo n 09-01-2021 Ambulatory Clinical Summary {[id number] [facility] Clinical Summary {[id number] D:[id number] [facility] Formson 09-01-2021 Forms [id number]:1 27 [facility] Physician Referralon 021 Physician Referral [id number]:1 27 [facility] Provider Letteron 09-01-2021 Provider Letter September 01, 2021 September 01, 2021 JENARO CARRERA [address] [place] [address] [address] [place] [address] JENARO CARRERA 1970 To Whom It May Concern, Please excuse above patient from work. Date of Appointment: From: 09/01/2021 To: _ May Return to Work On:2021 Restrictions: _ Comments: _ Sincerely, [facility] [address], [place] [address] [facility] RAD - Ultrasound Reporton RAD - Ultrasound Report [id number]:12 7 [facility] Office/Clinic Noteon 09-01-2021 Urology Office/Clinic Note Chief Complaint This patient is a 50-year-old male referred to the office following the incidental finding of bilateral adrenal masses. Patient was undergoing a work-up for weight loss. He states he is lost over 50 pounds in the last 4 to 6 months. He does not have a history of hypertension, Nelia syndrome, hypokalemia or metastatic disease. There are no significant voiding pattern problems. This patient has undergone abdominal ultrasound abdominal pelvic CT scan with contrast and MRI of the abdomen with and without contrast. HPI Staff [employer] referred to our office due to Bilateral adrenal masses. MRI done 07/21/21. CT done 06/30/21. US of upper quad done 08/31/21. Pt is currently not taking any BPH medications. Pt states that he has been getting sharp intermittent pain on the right flank that radiates around the back to the front, pain has been going on for the past couple months. Pt states that he has lost over 50 pounds in the past 4 months, with no explanation why? Dysuria: no pain or burning Incomplete bladder emptying: feels like he is emptying Hematuria: denies seeing any blood in urine, UA is clear Frequency: voiding every 3-4 hours Urgency: varies, intermittent moderate sx Nocturia: none, rare 1x Stream: average/strong stream, no hesitation, no intermittent stream, no straining Post void dripping: rare Wearing pads/ Depends: _ Urge incontinence: none Stress incontinence: none Incontinence without Sensory Awareness: none Abdominal pain: no pain or pressure Flank pain: right pain, when the pain hits its a severe sharp pain that radiates around the front and back of the right side- 05/23 when the pain is at its worse Sexual complaints: no pain or burning with orgasm, no blood in semen History of Present Illness Reviewed ua, CT, MRI, and abdominal US. There have been no associated fever, chills, flank pain or blood in the urine. Pt. denies any pain/burning with urination at this time. I have reviewed and verified the staff HPI to be accurate for this encounter. I have reviewed the previous health record information and history for this patient from Dr. Grace. Review of Systems ROS - Provider Constitutional: denies weight loss, denies hot flashes. Eyes: denies eye problems. Gastrointestinal: denies nausea, denies vomiting. Cardiovascular: denies chest pain or angina. Integumentary: no dryness Musculoskeletal: denies musculoskeletal symptoms. ENMT: denies otolaryngeal symptoms. Respiratory: no shortness of breath. Heme/Lymph: denies easy bleeding tendency, denies easy bruising tendency. Psychiatric: no confusion, no anxiety. Genitourinary: denies dysuria, denies hematuria, denies discharge, denies urinary frequency, denies urinary hesitancy, denies nocturia, denies incontinence, denies genital sores, denies decreased libido, and denies erectile dysfunction. Physical Exam General Appearance: alert, no distress, well nourished, well developed male. Head: normocephalic . Eyes: normal orbit and globe. ENMT: normal examination of external ears. Chest: Lungs CTA, respirations non labored. Cardiovascular: regular rate and rhythm. Abdomen: soft, non distended, no tenderness, no mass or organomegaly, no hernia. No flank pain or abdominal masses were noted on exam. Genitourinary: normal scrotum, normal testes, normal urethra, normal epididymis, normal vas deferens/spermatic cord. Flank Pain: none. Bladder: nonpalpable. Penis: normal shaft, normal glans. Lymph Nodes: unremarkable palpation of the cervical area. Skin: warm, dry, no bruising. Psychiatric: cooperative, affect appropriate for age, normal judgement, euthymic mood. Assessment/Plan This patient has a history of weight loss and during the process of evaluating him for weight loss a CT scan with contrast and an MRI with and without contrast was performed. This patient was found to have bilateral small adrenal masses. Each mass was less than 4 cm in size and MRI revealed that the masses had characteristics of an adenoma. This patient is definitely not overweight. He does not have signs or symptoms of Grinnell syndrome. He does not have a history that he is aware of hypertension or hypokalemia. There is no evidence of malignancy that may account for the bilateral adrenal gland masses. We discussed some of the history of adrenal masses especially those that are found incidentally. Given the fact that his masses of less than 4 cm in size and characteristics of an adenoma is unlikely that they may be a malignancy. He does not have the body habitus with typical of Grinnell's disease. He does not have a significant history of severe hypertension or hypokalemia or even moderate hypertension. As result he likely has nonfunctioning incidental adrenal masses. His work-up will include studies to determine whether or not these masses might be hormonally active. This will include serum dehydroepiandrosterone levels, dexamethasone suppression test, basic metabolic panel with (more content not included)... Normal [facility] Comment on above: Result Comment: Elec tronically Signed By: Sanjay Alonso MD, Kristin Hardy\.br\Date and Time Signed: 09/01/21 15:29 EDT\.br\Electronically Co-Signed By: Dede Balderrama\.br\Date and Time Co-Signed: 09/01/21 15:19 EDT Pathology Noteon 08-24-2021 Pathology Note [id number]:12 7 [facility] Outside Colonoscopyon 2020 Outside Colonoscopy [id number]#1.00CD:12 7 [facility] [place] [facility] [place] [facility] [place] 19, 2021 MARYLIN MORALES, [address] [place] [address] Re: JENARO CARRERA Date of : 1970 Thank you for your referral of Jenaro Carrera who was seen on consultation on 08/05/2021 for unintentional weight loss. An EGD and colonoscopy are planned for further evaluation. I have enclosed my consultation note for your review. I will be happy to follow Jenaro should his symptoms persist. Sincerely, Sal Lopes MD General Surgery [facility] Lab Reportson 08-17-2021 Lab Reports [id number]#[id number]:1 27 [facility] Pre-Certification Formon Pre-Certification Form [id number]#[id number]:1 27 [facility] Consent for Procedure/Surger yon 08-06-2021 Consent for Procedure/Surgery [id number]#1.00CD:12 7 [facility] Physician Referralon 021 Physician Referral [id number]#1.00CD:12 7 [facility] Basic Metabolic Panelon Anion gap [Moles/Vol] 12 mmol/L mmol/L [place] Bun/Cre Ratio 14 [place] Calcium [Mass/Vol] 9.4 mg/dL 8.6 - 10. 4 mg/dL [place] Chloride [Moles/Vol] 100 mmol/L 98 - 107 mmol/L [place] CO2 [Moles/Vol] 24 mmol/L 20 - 31 mmol/L [place] Creatinine [Mass/Vol] 0.77 mg/dL 0.7 - 1.2 mg/dL [place] GFR >60 >60 mL/min [place] GFR Non- >60 >60 mL/min [place] GFR/1.73 sq M predicted among non-blacks MDRD (S/P/Bld) [Vol rate/Area] [place] Comment on above: Average GFR for 40-4 9 years old: 99 mL/min/1.73sq m Chronic Kidney Disease: <60 mL/min/1.73sq m Kidney failure: <15 mL/min/1.73sq m eGFR calculated using average adult body mass. Additional eGFR calculator available at: http://www.PromiseUP/multiple_crcl_2012.htm GFR/1.73 sq M predicted among non-blacks MDRD (S/P/Bld) [Vol rate/Area] NOT REPORTED [place] Glucose [Mass/Vol] 136 mg/dL High 70 - 99 mg/dL [place] Interpretation and review of laboratory results Abnormal [place] Potassium [Moles/Vol] 4.3 mmol/L 3.7 - 5.3 mmol/L [place] Sodium [Moles/Vol] 136 mmol/L 135 - 144 mmol/L [place] Urea nitrogen [Mass/Vol] 11 mg/dL 6 - 20 mg/dL [place] Basic Metabolic Profon 01-14 (cont.) Normal [facility] Comment on above: Result Comment: Aver age GFR for 40-49 years old: 99 mL/min/1.73sq m Chronic Kidney Disease: <60 mL/min/1.73sq m Kidney failure: <15 mL/min/1.73sq m eGFR calculated using average adult body mass. Additional eGFR calculator available at: http://www.iMICROQ.[employer]/multiple_crcl_2012.htm Performed By: #### C DP, PT, PTT, BMP #### [facility] [facility] [place] [address] Interventional Radiology Rn: Elijah Vega MD Anion gap [Moles/Vol] 12 mmol/L Normal 9-17 [facility] Comment on above: Performed By: #### C DP, PT, PTT, BMP #### [facility] [address] [place] [address] Interventional Radiology Rn: Elijah Vega MD BUN/CRE Ratio 14 Normal 9-20 [facility] Comment on above: Performed By: #### C DP, PT, PTT, BMP #### [facility] [place] [address] Interventional Radiology Rn: Elijah Vega MD Calcium [Mass/Vol] 9.4 mg/dL Normal 8.6-10.4 [facility] Comment on above: Performed By: #### C DP, PT, PTT, BMP #### [facility] [address] [place] [address]. [place] [address] Interventional Radiology Rn: Elijah Vega MD Chloride [Moles/Vol] 100 mmol/L Normal 98-107 [facility] Comment on above: Performed By: #### C DP, PT, PTT, BMP #### [facility] [address] [place] [address]. [place] [address] Interventional Radiology Rn: Elijah Vega MD CO2 [Moles/Vol] 24 mmol/L Normal 20-31 [facility] Comment on above: Performed By: #### C DP, PT, PTT, BMP #### [facility] [address] [place] [address] Interventional Radiology Rn: Elijah Vega MD Creatinine [Mass/Vol] 0.77 mg/dL Normal 0.70-1.20 [facility] Comment on above: Performed By: #### C DP, PT, PTT, BMP #### [facility] [address] [place] [address] Interventional Radiology Rn: Elijah Vega MD GFR, Amer >60 Normal >60 [facility] Comment on above: Performed By: #### C DP, PT, PTT, BMP #### [facility] [address] [place] [address] Interventional Radiology Rn: Elijah Vega MD GFR,non Amer >60 Normal >60 [facility] Comment on above: Performed By: #### C DP, PT, PTT, BMP #### [facility] [address] [place] [address] Interventional Radiology Rn: Elijah Vega MD Glucose [Mass/Vol] 136 mg/dL High 70-99 [facility] Comment on above: Performed By: #### C DP, PT, PTT, BMP #### [facility] [address] [place] [address] Interventional Radiology Rn: Elijah Vega MD Potassium [Moles/Vol] 4.3 mmol/L Normal 3.7-5.3 [facility] Comment on above: Performed By: #### C DP, PT, PTT, BMP #### [facility] [address] [place] [address] Interventional Radiology Rn: Elijah Vega MD Sodium [Moles/Vol] 136 mmol/L Normal 135-144 [facility] Comment on above: Performed By: #### C DP, PT, PTT, BMP #### [facility] [address] [facility] [place] [address] Interventional Radiology Rn: Elijah Vega MD Urea nitrogen [Mass/Vol] 11 mg/dL Normal 6-20 [facility] Comment on above: Performed By: #### C DP, PT, PTT, BMP #### [facility] [address] [place] [address]. [place] [address] Interventional Radiology Rn: Elijah Vega MD Staging: NOT REPORTED Normal [facility] Comment on above: Performed By: #### C DP, PT, PTT, BMP #### [facility] [address] [place] [address] Interventional Radiology Rn: Elijah Vega MD CBCon 01-15-2020 Erythrocyte distribution width (RBC) [Ratio] 12.9 % Normal 11.8-14.4 [facility] Comment on above: Performed By: #### C DP, PT, PTT, BMP #### [facility] [address] [place] [address] Interventional Radiology Rn: Elijah Vega MD Hematocrit (Bld) [Volume fraction] 45.0 % Normal 40.7-50.3 [facility] Comment on above: Performed By: #### C DP, PT, PTT, BMP #### [facility] [address] [place] [address]. [place] [address] Interventional Radiology Rn: Elijah Vega MD Hemoglobin (Bld) [Mass/Vol] 14.9 g/dL Normal 13.0-17.0 [facility] Comment on above: Performed By: #### C DP, PT, PTT, BMP #### [facility] [address] [place] [address]. [place] [address] Interventional Radiology Rn: Elijah Vega MD MCH (RBC) [Entitic mass] 30.5 pg Normal 25.2-33.5 [facility] Comment on above: Performed By: #### C DP, PT, PTT, BMP #### [facility] [place] [address] Interventional Radiology Rn: Elijah Vega MD MCHC (RBC) [Mass/Vol] 33.1 g/dL Normal 28.4-34.8 [facility] Comment on above: Performed By: #### C DP, PT, PTT, BMP #### [facility] [place] [address] Interventional Radiology Rn: Elijah Vega MD MCV (RBC) [Entitic vol] 92.0 fL Normal 82.6-102.9 [facility] Comment on above: Performed By: #### C DP, PT, PTT, BMP #### [facility] [address] [place], [place] [address] [place] [address] Interventional Radiology Rn: Elijah Vega MD NRBC Automated 0.0 per 100 WBC Normal 0.0 [facility] Comment on above: Performed By: #### C DP, PT, PTT, BMP #### [facility] [address] [place] [address]. [place] [address] Interventional Radiology Rn: Elijah Vega MD Platelet mean volume (Bld) [Entitic vol] 10.0 fL Normal 8.1-13.5 [facility] Comment on above: Performed By: #### C DP, PT, PTT, BMP #### [facility] [address] [place] [address]. [place] [address] Interventional Radiology Rn: Elijah Vega MD Platelets (Bld) [#/Vol] 248 10*3/uL Normal 138-453 [facility] Comment on above: Performed By: #### C DP, PT, PTT, BMP #### [facility] [address] [place] [address]. [place], [place] [id number] Interventional Radiology Rn: Elijah Vega MD RBC (Bld) [#/Vol] 4.89 10*6/uL Normal 4.21-5.77 [facility] Comment on above: Performed By: #### C DP, PT, PTT, BMP #### [facility] [address] [place], [place] [id number] Interventional Radiology Rn: Elijah Vega MD WBC (Bld) [#/Vol] 19.4 10*3/uL High 3.5-11.3 [facility] Comment on above: Performed By: #### C DP, PT, PTT, BMP #### [facility] [address] [place], [place] [id number] Interventional Radiology Rn: Elijah Vega MD Erythrocyte distribution width (RBC) [Ratio] 12.9 % 11.8 - 14.4 % [place] Hematocrit (Bld) [Volume fraction] 45.0 % 40.7 - 50.3 % [place] Hemoglobin (Bld) [Mass/Vol] 14.9 g/dL 13 - 17 g/dL [place] Interpretation and review of laboratory results Abnormal [place] MCH (RBC) [Entitic mass] 30.5 pg 25.2 - 33.5 pg [place] MCHC (RBC) [Mass/Vol] 33.1 g/dL 28.4 - 34.8 g/dL [place] MCV (RBC) [Entitic vol] 92.0 fL 82.6 - 102.9 fL [place] Platelet mean volume (Bld) [Entitic vol] 10.0 fL 8.1 - 13.5 fL [place] Platelets (Bld) [#/Vol] 248 10*3/uL [place] RBC (Bld) [#/Vol] 4.89 10*6/uL 4.21 - 5.7 7 m/uL [place] WBC (Bld) [#/Vol] 0.0 10*3/uL 0.0 per 10 0 WBC [place] WBC (Bld) [#/Vol] 19.4 10*3/uL [place] FLUORO FOR SURGICAL PROCEDUR ESon 01-14-2020 FLUORO FOR SURGICAL PROCEDURES Radiology exam is complete. No Radiologist dictation. Please follow up with ordering provider. Final result Normal [facility] Radiology exam is complete. No Radiologist dictation. Please follow up with ordering provider. [facility] [place] XR CERVICAL SPINE (2-3 VIEWS )on 01-14-2020 XR CERVICAL SPINE (2-3 VIEWS) EXAMINATION: SPOT FLUOROSCOPIC IMAGES 01/14/2020 12:30 pm TECHNIQUE: Fluoroscopy was provided by the radiology department for procedure. Radiologist was not present during examination. FLUOROSCOPY DOSE AND TYPE OR TIME AND EXPOSURES: 13.1 seconds, 0.85 mGy cumulative air kerma COMPARISON: None HISTORY: Intraprocedural imaging. FINDINGS: 2 spot images of the cervical spine were obtained. There appears to be a cervical plate seen anteriorly with fixation screws extending into the inferior aspect of the C5 vertebral body, with a disc interspace device at C5-C6, and screws through the C6 vertebral body. Life support tubing is noted. IMPRESSION: Intraprocedural fluoroscopic spot images as above. See separate procedure report for more information. Interpreted by: Jered Chilel MD Signed by: Jered Chilel MD 01/14/20 Final result Normal [facility] EXAMINATION: SPOT FLUOROSCOPIC IMAGES 01/14/2020 12:30 pm TECHNIQUE: Fluoroscopy was provided by the radiology department for procedure. Radiologist was not present during examination. FLUOROSCOPY DOSE AND TYPE OR TIME AND EXPOSURES: 13.1 seconds, 0.85 mGy cumulative air kerma COMPARISON: None HISTORY: Intraprocedural imaging. FINDINGS: 2 spot images of the cervical spine were obtained. There appears to be a cervical plate seen anteriorly with fixation screws extending into the inferior aspect of the C5 vertebral body, with a disc interspace device at C5-C6, and screws through the C6 vertebral body. Life support tubing is noted. [place] Intraprocedural fluoroscopic spot images as above. See separate procedure report for more information. [place] Cheng, [facility] Incoming Radiant Results From [employer] - 01/14/2020 1:00 PM EST EXAMINATION: SPOT FLUOROSCOPIC IMAGES 01/14/2020 12:30 pm TECHNIQUE: Fluoroscopy was provided by the radiology department for procedure. Radiologist was not present during examination. FLUOROSCOPY DOSE AND TYPE OR TIME AND EXPOSURES: 13.1 seconds, 0.85 mGy cumulative air kerma COMPARISON: None HISTORY: Intraprocedural imaging. FINDINGS: 2 spot images of the cervical spine were obtained. There appears to be a cervical plate seen anteriorly with fixation screws extending into the inferior aspect of the C5 vertebral body, with a disc interspace device at C5-C6, and screws through the C6 vertebral body. Life support tubing is noted. IMPRESSION: Intraprocedural fluoroscopic spot images as above. See separate procedure report for more information. [place] EKG 12 Leadon 01-01-2020 Atrial Rate 72 BPM [place] P [place] 23 degrees [place] P-R Interval 152 ms [place] Q-T Interval 360 ms [place] QRS Duration 90 ms [place] QTc Calculation (Bazett) 394 ms [place] R [place] -3 degrees [facility], [place] T [place] 24 degrees [place] Ventricular Rate 72 BPM [place] Normal sinus rhythm with sinus arrhythmia Normal ECG No previous ECGs available [place], [facility] Incoming E kg Results From [employer] - 01/01/2020 6:58 PM EST Normal sinus rhythm with sinus arrhythmia Normal ECG No previous ECGs available [place] MRSA DNA Probe, Nasalon 12-15 MRSA, DNA, Nasal NEGATIVE: MRSA DNA n ot detected by nucleic acid amplification. NEGATIVE: MRSA DNA not detected by nucleic acid amplificati [place] Comment on above: Results should be used as an adjunct to nosocomial control efforts to identify patients needing enhanced precautions. The test is not intended to identify patients with staphylococcal infections. Results should not be used to guide or monitor treatment for MRSA infections. Specimen Description .NASAL SWAB [place] MRSA, DNA, Nasalon 0 MRSA, DNA, Nasal NEGATIVE: MRSA DNA n ot detected by nucleic acid amplification. Normal [facility] Comment on above: Result Comment: Results should be used as an adjunct to nosocomial control efforts to identify patients needing enhanced precautions. The test is not intended to identify patients with staphylococcal infections. Results should not be used to guide or monitor treatment for MRSA infections. Performed By: #### M RSANO #### [facility] [address] [place] [address] Interventional Radiology Rn: Elijah Vega MD [address] [place] [address] Interventional Radiology Rn: Garret Gates MD APTTon 12-31-2019 aPTT Coag (Bld) [Time] 26.2 s Normal 23-31 [facility] Comment on above: Performed By: #### C DP, PT, PTT, BMP #### [facility] [address] [facility] [place] [address] Interventional Radiology Rn: Elijah Vega MD aPTT Coag (Bld) [Time] 26.2 s [place] Basic Metabolic Profon 12-31 (cont.) Normal [facility] Comment on above: Result Comment: Aver age GFR for 40-49 years old: 99 mL/min/1.73sq m Chronic Kidney Disease: <60 mL/min/1.73sq m Kidney failure: <15 mL/min/1.73sq m eGFR calculated using average adult body mass. Additional eGFR calculator available at: http://www.iMICROQ.com/multiple_crcl_2011.htm Performed By: #### C DP, PT, PTT, BMP #### [facility] [address] [facility] [place] [address] Interventional Radiology Rn: Elijah Vega MD Anion gap [Moles/Vol] 11 mmol/L Normal - [facility] Comment on above: Performed By: #### C DP, PT, PTT, BMP #### [facility] [address] [place] [address] Interventional Radiology Rn: Elijah Vega MD BUN/CRE Ratio 11 Normal 9-20 [facility] Comment on above: Performed By: #### C DP, PT, PTT, BMP #### [facility] [address] [place] [address] Interventional Radiology Rn: Elijah Vega MD Calcium [Mass/Vol] 9.3 mg/dL Normal 8.6-10.4 [facility] Comment on above: Performed By: #### C DP, PT, PTT, BMP #### [facility] [address] [place] [address] Interventional Radiology Rn: Elijah Vega MD Chloride [Moles/Vol] 104 mmol/L Normal 98-107 [facility] Comment on above: Performed By: #### C DP, PT, PTT, BMP #### [facility] [place] [address] Interventional Radiology Rn: Elijah Vega MD CO2 [Moles/Vol] 24 mmol/L Normal 20-31 [facility] Comment on above: Performed By: #### C DP, PT, PTT, BMP #### [facility] [place] [address] Interventional Radiology Rn: Elijah Vega MD Creatinine [Mass/Vol] 0.83 mg/dL Normal 0.70-1.20 [facility] Comment on above: Performed By: #### C DP, PT, PTT, BMP #### [facility] [place] [address] Interventional Radiology Rn: Elijah Vega MD GFR, Amer >60 Normal >60 [facility] Comment on above: Performed By: #### C DP, PT, PTT, BMP #### [facility] [place] [address] Interventional Radiology Rn: Elijah Vega MD GFR,non Amer >60 Normal >60 [facility] Comment on above: Performed By: #### C DP, PT, PTT, BMP #### [facility] [address] [place] [address] Interventional Radiology Rn: Elijah Vega MD Glucose [Mass/Vol] 93 mg/dL Normal 70-99 [facility] Comment on above: Performed By: #### C DP, PT, PTT, BMP #### [facility] [address] [place] [address] Interventional Radiology Rn: Elijah Vega MD Potassium [Moles/Vol] 4.4 mmol/L Normal 3.7-5.3 [facility] Comment on above: Performed By: #### C DP, PT, PTT, BMP #### [facility] [address] [place] [address] Interventional Radiology Rn: Elijah Vega MD Sodium [Moles/Vol] 139 mmol/L Normal 135-144 [facility] Comment on above: Performed By: #### C DP, PT, PTT, BMP #### [facility] [address] [place] [address] Interventional Radiology Rn: Elijah Vega MD Urea nitrogen [Mass/Vol] 9 mg/dL Normal 6-20 [facility] Comment on above: Performed By: #### C DP, PT, PTT, BMP #### [facility] [address] [facility] [place] [address] Interventional Radiology Rn: Elijah Vega MD Staging: NOT REPORTED Normal [facility] Comment on above: Performed By: #### C DP, PT, PTT, BMP #### [facility] [address] [place] [address] Interventional Radiology Rn: Elijah Vega MD Anion gap [Moles/Vol] 11 mmol/L 9 - 17 mmol/L [place] Bun/Cre Ratio 11 [place] Calcium [Mass/Vol] 9.3 mg/dL 8.6 - 10. 4 mg/dL [place] Chloride [Moles/Vol] 104 mmol/L 98 - 107 mmol/L [place] CO2 [Moles/Vol] 24 mmol/L 20 - 31 mmol/L [place] Creatinine [Mass/Vol] 0.83 mg/dL 0.7 - 1.2 mg/dL [place] GFR >60 >60 mL/min [place] GFR Non- >60 >60 mL/min [place] GFR/1.73 sq M predicted among non-blacks MDRD (S/P/Bld) [Vol rate/Area] [place] Comment on above: Average GFR for 40-4 9 years old: 99 mL/min/1.73sq m Chronic Kidney Disease: <60 mL/min/1.73sq m Kidney failure: <15 mL/min/1.73sq m eGFR calculated using average adult body mass. Additional eGFR calculator available at: http://www.PromiseUP/multiple_crcl_2012.htm GFR/1.73 sq M predicted among non-blacks MDRD (S/P/Bld) [Vol rate/Area] NOT REPORTED [place] Glucose [Mass/Vol] 93 mg/dL 70 - 99 mg/dL [place] Potassium [Moles/Vol] 4.4 mmol/L 3.7 - 5.3 mmol/L [place] Sodium [Moles/Vol] 139 mmol/L 135 - 144 mmol/L [place] Urea nitrogen [Mass/Vol] 9 mg/dL 6 - 20 mg/dL [place] CBC with DIFFon 12-31-2019 Basophils (Bld) [#/Vol] 0.06 10*3/uL [place] Basophils/100 WBC (Bld) 1 % 0 - 2 % [place] Differential Type NOT REPORTED [place] Eosinophils (Bld) [#/Vol] 10*3/uL [place] Eosinophils/100 WBC (Bld) 0 % Low 1 - 4 % [place] Erythrocyte distribution width (RBC) [Ratio] 12.8 % 11.8 - 14.4 % [place] Hematocrit (Bld) [Volume fraction] 45.2 % 40.7 - 50.3 % [place] Hemoglobin (Bld) [Mass/Vol] 15.0 g/dL 13 - 17 g/dL [place] Immature granulocytes (Bld) [#/Vol] 1 % High 0 [place] Immature granulocytes (Bld) [#/Vol] 0.08 10*3/uL [place] Interpretation and review of laboratory results Abnormal [place] Lymphocytes (Bld) [#/Vol] 0.97 10*3/uL Low [place] Lymphocytes/100 WBC (Bld) 8 % Low 24 - 43 % [place] MCH (RBC) [Entitic mass] 30.6 pg 25.2 - 33.5 pg [place] MCHC (RBC) [Mass/Vol] 33.2 g/dL 28.4 - 34.8 g/dL [place] MCV (RBC) [Entitic vol] 92.2 fL 82.6 - 102.9 fL [place] Monocytes (Bld) [#/Vol] 0.42 10*3/uL [place] Monocytes/100 WBC (Bld) 3 % 3 - 12 % [place] Platelet mean volume (Bld) [Entitic vol] 9.7 fL 8.1 - 13.5 fL [place] Platelets (Bld) [#/Vol] NOT REPORTED [place] Platelets (Bld) [#/Vol] 252 10*3/uL [place] RBC (Bld) [#/Vol] 4.90 10*6/uL 4.21 - 5.7 7 m/uL [place] RBC morphology finding Nom (Bld) NOT REPORTED [place] Segmented neutrophils/100 WBC (Bld) 87 % High 36 - 65 % [place] Segs Absolute 11.43 High [place] WBC (Bld) [#/Vol] 0.0 10*3/uL 0.0 per 10 0 WBC [place] WBC (Bld) [#/Vol] 13.0 10*3/uL [place] WBC Morphology NOT REPORTED [place] CBC with Diffon 12-31-2019 Abs. Basophil 0.06 k/uL Normal 0.00-0.20 [facility] Comment on above: Performed By: #### C DP, PT, PTT, BMP #### [facility] [address] [place] [address] Interventional Radiology Rn: Elijah Vega MD Abs.Imm.Granulocyt e 0.08 k/uL Normal 0.00-0.30 [facility] Comment on above: Performed By: #### C DP, PT, PTT, BMP #### [facility] [address] [place] [address] Interventional Radiology Rn: Elijah Vega MD Abs.Neutrophil (Seg) 11.43 k/uL High 1.50-8.10 [facility] Comment on above: Performed By: #### C DP, PT, PTT, BMP #### [facility] [address] [place] [address] Interventional Radiology Rn: Elijah Vega MD Basophils/100 WBC (Bld) 1 % Normal 0-2 [facility] Comment on above: Performed By: #### C DP, PT, PTT, BMP #### [facility] [address] [place] [address] Interventional Radiology Rn: Elijah Vega MD Eosinophils (Bld) [#/Vol] 10*3/uL Normal 0.00-0.44 [facility] Comment on above: Performed By: #### C DP, PT, PTT, BMP #### [facility] [place] [address] Interventional Radiology Rn: Elijah Vega MD Eosinophils/100 WBC (Bld) 0 % Low 1-4 [facility] Comment on above: Performed By: #### C DP, PT, PTT, BMP #### [facility] [address] [place], [place] [address] [address] Interventional Radiology Rn: Elijah Vega MD Erythrocyte distribution width (RBC) [Ratio] 12.8 % Normal 11.8-14.4 [facility] Comment on above: Performed By: #### C DP, PT, PTT, BMP #### [facility] [address] [place] [address]. [place] [address] Interventional Radiology Rn: Elijah Vega MD Hematocrit (Bld) [Volume fraction] 45.2 % Normal 40.7-50.3 [facility] Comment on above: Performed By: #### C DP, PT, PTT, BMP #### [facility] [address] [place] [address] Interventional Radiology Rn: Elijah Vega MD Hemoglobin (Bld) [Mass/Vol] 15.0 g/dL Normal 13.0-17.0 [facility] Comment on above: Performed By: #### C DP, PT, PTT, BMP #### [facility] [address] [place] [address] Interventional Radiology Rn: Elijah Vega MD Immature granulocytes (Bld) [#/Vol] 1 % High 0 [facility] Comment on above: Performed By: #### C DP, PT, PTT, BMP #### [facility] [address] [place], [place] [address]ia [facility] [place] [address] Interventional Radiology Rn: Elijah Vega MD Lymphocytes (Bld) [#/Vol] 0.97 10*3/uL Low 1.10-3.70 [facility] Comment on above: Performed By: #### C DP, PT, PTT, BMP #### [facility] [address] [facility] [place] [address] Interventional Radiology Rn: Elijah Vega MD Lymphocytes/100 WBC (Bld) 8 % Low 24-43 [facility] Comment on above: Performed By: #### C DP, PT, PTT, BMP #### [facility] [place] [address] Interventional Radiology Rn: Elijah Vega MD MCH (RBC) [Entitic mass] 30.6 pg Normal 25.2-33.5 [facility] Comment on above: Performed By: #### C DP, PT, PTT, BMP #### [facility] [place] [address] Interventional Radiology Rn: Elijah Vega MD MCHC (RBC) [Mass/Vol] 33.2 g/dL Normal 28.4-34.8 [facility] Comment on above: Performed By: #### C DP, PT, PTT, BMP #### [facility] [address] [place] [address]. [place] [address] Interventional Radiology Rn: Elijah Vega MD MCV (RBC) [Entitic vol] 92.2 fL Normal 82.6-102.9 [facility] Comment on above: Performed By: #### C DP, PT, PTT, BMP #### [facility] [address] [place] [address] Interventional Radiology Rn: Elijah Vega MD Monocytes (Bld) [#/Vol] 0.42 10*3/uL Normal 0.10-1.20 [facility] Comment on above: Performed By: #### C DP, PT, PTT, BMP #### [facility] [place] [address] Interventional Radiology Rn: Elijah Vega MD Monocytes/100 WBC (Bld) 3 % Normal 3-12 [facility] Comment on above: Performed By: #### C DP, PT, PTT, BMP #### [facility] [address] [place] [address] Interventional Radiology Rn: Elijah Vega MD Neutrophil (Seg) 87 % High 36-65 [facility] Comment on above: Performed By: #### C DP, PT, PTT, BMP #### [facility] [address] [place] [address] Interventional Radiology Rn: Elijah Vega MD NRBC Automated 0.0 per 100 WBC Normal 0.0 [facility] Comment on above: Performed By: #### C DP, PT, PTT, BMP #### [facility] [address] [place] [address] Interventional Radiology Rn: Elijah Vega MD Platelet mean volume (Bld) [Entitic vol] 9.7 fL Normal 8.1-13.5 [facility] Comment on above: Performed By: #### C DP, PT, PTT, BMP #### [facility] [address] [place] [address] Interventional Radiology Rn: Elijah Vega MD Platelets (Bld) [#/Vol] 252 10*3/uL Normal 138-453 [facility] Comment on above: Performed By: #### C DP, PT, PTT, BMP #### [facility] [address] [place] [address] Interventional Radiology Rn: Elijah Vega MD RBC (Bld) [#/Vol] 4.90 10*6/uL Normal 4.21-5.77 [facility] Comment on above: Performed By: #### C DP, PT, PTT, BMP #### [facility] [address] [place] [address] Interventional Radiology Rn: Elijah Vega MD WBC (Bld) [#/Vol] 13.0 10*3/uL High 3.5-11.3 [facility] Comment on above: Performed By: #### C DP, PT, PTT, BMP #### [facility] [address] [place] [address] Interventional Radiology Rn: Elijah Vega MD Auto Diff Performed NOT REPORTED Normal [facility] Comment on above: Performed By: #### C DP, PT, PTT, BMP #### [facility] [address] [place] [address] Interventional Radiology Rn: Elijah Vega MD Platelets (Bld) [#/Vol] NOT REPORTED Normal [facility] Comment on above: Performed By: #### C DP, PT, PTT, BMP #### [facility] [address] [place] [address] Interventional Radiology Rn: Elijah Vega MD RBC morphology finding Nom (Bld) NOT REPORTED Normal [facility] Comment on above: Performed By: #### C DP, PT, PTT, BMP #### [facility] [address] [place] [address] Interventional Radiology Rn: Elijah Vega MD WBC Morphology NOT REPORTED Normal [facility] Comment on above: Performed By: #### C DP, PT, PTT, BMP #### [facility] [address] [place] [address] Interventional Radiology Rn: Elijah Vega MD MRSA, DNA, Nasalon 0 Specimen Description .NASAL SWAB Normal [facility] Comment on above: Performed By: #### M RSANO #### [facility] [address] [place], [place] [phone] Interventional Radiology Rn: Elijah Vega MD [facility] [address] [place] [address] [id number] Interventional Radiology Rn: Garret Gates MD Microscopic Urinalysison Amorphous, UA NOT REPORTED None [facility] [place] [facility] Bacteria, UA NOT REPORTED None [facility] [place] [facility] Casts UA NOT REPORTED /LPF [facility] [place] [facility] Crystals UA NOT REPORTED None /HPF [facility] [place] [facility] Epithelial Cells UA 0 TO 2 [facility] [place] [facility] Mucus, UA NOT REPORTED None [facility] [place] [facility] Other Observations UA NOT REPORTED NOT REQ. [place], [place] RBC (U) [#/Vol] None [facility] [place] [facility] Renal Epithelial, Urine NOT REPORTED 0 /HPF [facility] [place] [facility] Trichomonas, UA NOT REPORTED None [facility] [place] [facility] WBC, UA 0 TO 2 [facility] Yeast, UA NOT REPORTED None [facility] - [facility] [place] [facility] PTon 12-31-2019 INR Coag (PPP) [Relative time] 1.0 {INR} Normal [facility] Comment on above: Result Comment: Therapeutic Range: Moderate Anticoagulant Intensity: INR = 2.0-3.0 High Anticoagulant Intensity: INR = 2.5-3.5 High anticoagulant intensity for patients with a mechanical prosthetic heart valve, thrombosis and antiphospholipid syndrome, or myocardial infarction. Performed By: #### C DP, PT, PTT, BMP #### [facility] [address] [facility]. [place], [place] [id number] Interventional Radiology Rn: Elijah Vega MD PT Coag (PPP) [Time] 9.9 s Normal 9.7-11.6 [facility] Comment on above: Performed By: #### C DP, PT, PTT, BMP #### [facility] [address] [place], [place] [phone] Interventional Radiology Rn: Elijah Vega MD INR Coag (PPP) [Relative time] 1.0 {INR} [place], [place] Comment on above: Therapeutic Range: Moderate Anticoagulant Intensity: INR = 2.0-3.0 High Anticoagulant Intensity: INR = 2.5-3.5 High anticoagulant intensity for patients with a mechanical prosthetic heart valve, thrombosis and antiphospholipid syndrome, or myocardial infarction. PT Coag (PPP) [Time] 9.9 s [place], [place] TYPE AND SCREENon 12-31-2019 ABO/Rh Positive [place], [place] Arm Band Number BE [id number] [place] Expiration Date 01/17/2020,235 [place], [place] Type + Screenon 12-31-2019 Type + Screen Sample Expiration 01/17/2020,2359 Arm Band Number BE [id number] ABO/Rh(D) O POSITIVE Antibody Screen NEGATIVE Normal [facility] Comment on above: Performed By: #### T YS #### [facility] [address] [place], [place] [phone] Interventional Radiology Rn: Elijah Vega MD URINALYSISon 12-31-2019 Bilirubin Urine Negative NEGATIVE [place] Color, UA YELLOW YELLOW [place] Glucose, Ur Negative NEGATIVE [place] Interpretation and review of laboratory results Abnormal [place] Ketones Ql (U) Negative NEGATIVE [place] Leukocyte esterase Test strip Ql (U) TRACE Abnormal NEGATIVE [place] Nitrite, Urine Negative NEGATIVE [place] pH, UA 6.0 [place] Protein (U) [Mass/Vol] Negative NEGATIVE [place] Specific [place], UA 1.015 [place] Turbidity UA CLEAR CLEAR [place] Urinalysis Comments NOT REPORTED [place] Urine Hgb Negative NEGATIVE [place] Urobilinogen, Urine Normal Normal [place] Urinalysis, Routineon 2019 Acetoacetic Acid,Ur Negative Normal NEG [facility] Comment on above: Performed By: #### U A, UMICAO #### [facility] [address] [place] [address] Interventional Radiology Rn: Elijah Vega MD Bilirubin, SemiQt,Ur Negative Normal NEG [facility] Comment on above: Performed By: #### U A, UMICAO #### [facility] [address] [place] [address] Interventional Radiology Rn: Elijah Vega MD Color (U) YELLOW Normal YEL [facility] Comment on above: Performed By: #### U A, UMICAO #### [facility] [address] [place] [address] Interventional Radiology Rn: Elijah Vega MD Glucose Ql (U) Negative Normal NEG [facility] Comment on above: Performed By: #### U A, UMICAO #### [facility] [address] [place] [address] Interventional Radiology Rn: Elijah Vega MD Hemoglobin, Ur Negative Normal NEG [facility] Comment on above: Performed By: #### U A, UMICAO #### [facility] [address] [place] [address] Interventional Radiology Rn: Elijah Vega MD Leukocyte esterase Test strip Ql (U) TRACE Abnormal NEG [facility] Comment on above: Performed By: #### U A, UMICAO #### [facility] [address] [place] [address] Interventional Radiology Rn: Elijah Vega MD Nitrite,Ur Negative Normal NEG [facility] Comment on above: Performed By: #### U A, UMICAO #### [facility] [address] [place] [address] Interventional Radiology Rn: Elijah Vega MD pH (U) 6.0 [pH] Normal 5.0-8.0 [facility] Comment on above: Performed By: #### U AREYO #### [facility] [address] [place] [address] Interventional Radiology Rn: Elijah Vega MD Protein Ql (U) Negative Normal NEG [facility] Comment on above: Performed By: #### U AREYO #### [facility] [address] [place] [address] Interventional Radiology Rn: Elijah Vega MD Specific gravity (U) [Rel density] 1.015 Normal 1.005-1.030 [facility] Comment on above: Performed By: #### U LISA Rubio #### [facility] [address] [facility] [place] [address] Interventional Radiology Rn: Elijah Vega MD Turbidity CLEAR Normal CLEAR [facility] Comment on above: Performed By: #### U AREYO #### [facility] [address] [place] [address] Interventional Radiology Rn: Elijah Vega MD Urobilinogen,Ur Normal Normal NORM [facility] Comment on above: Performed By: #### U AREYO #### [facility] [address] [place] [address] Interventional Radiology Rn: Elijah Vega MD Comment NOT REPORTED Normal [facility] Comment on above: Performed By: #### U A UMVINODO #### [facility] [address] [place] [address] Interventional Radiology Rn: Elijah Vega MD Urinalysis,Microon 0 ----- Normal [facility] Comment on above: Performed By: #### U A, UMICAO #### [facility] [address] [place] [address]. [place] [address] Interventional Radiology Rn: Elijah Vega MD Epithelial cells LM.HPF (Urine sed) [#/Area] 0 TO 2 Normal 0-5 [facility] Comment on above: Performed By: #### U A, UMICAO #### [facility] [address] [place] [address] Interventional Radiology Rn: Elijah Vega MD RBC (U) [#/Vol] None Normal 0-2 [facility] Comment on above: Performed By: #### U A, UMICAO #### [facility] [address] [place] [address]. [place] [address] Interventional Radiology Rn: Elijah Vega MD WBC (U) [#/Vol] 0 TO [address] Comment on above: Performed By: #### U A, UMICAO #### [facility] [address] [place] [address]. [place] [address] Interventional Radiology Rn: Elijah Vega MD Amorphous sediment LM Ql (Urine sed) NOT REPORTED Normal [facility] Comment on above: Performed By: #### U A, UMICAO #### [facility] [address] [place] [address] Interventional Radiology Rn: Elijah Vega MD Bacteria LM.HPF (Urine sed) [#/Area] NOT REPORTED Normal [facility] Comment on above: Performed By: #### U A, UMICAO #### [facility] [address] [place] [address]. [place] [address] Interventional Radiology Rn: Elijah Vega MD Casts LM.LPF (Urine sed) [#/Area] NOT REPORTED Normal [facility] Comment on above: Performed By: #### U A, UMICAO #### [facility] [address] [place] [address] Interventional Radiology Rn: Elijah Vega MD Crystals LM Nom (Urine sed) NOT REPORTED Normal NONE [facility] Comment on above: Performed By: #### U A, UMICAO #### [facility] [address] [place] [address] Interventional Radiology Rn: Elijah Vega MD Epithelial, Renal NOT REPORTED Normal 0 [facility] Comment on above: Performed By: #### U A, UMICAO #### [facility] [address] [place] [address] Interventional Radiology Rn: Elijah Vega MD Mucus Strands NOT REPORTED Normal NONE [facility] Comment on above: Performed By: #### U A, UMICAO #### [facility] [address] [place] [address] Interventional Radiology Rn: Elijah Vega MD Other Observations NOT REPORTED Normal NREQ [facility] Comment on above: Performed By: #### U A, UMICAO #### [facility] [address] [place] [address] Interventional Radiology Rn: Elijah Vega MD Trichomonas NOT REPORTED Normal NONE [facility] Comment on above: Performed By: #### U A, UMICAO #### [facility] [address] [place] [address] Interventional Radiology Rn: Elijah Vega MD Yeast LM Ql (Urine sed) NOT REPORTED Normal NONE [facility] Comment on above: Performed By: #### U A, UMICAO #### [facility] [address] [place] [address] Interventional Radiology Rn: Elijah Vega MD Vital Signs Date Time Vital Sign Value Performing Clinician Facility 12-16-2023 11:10-0500 Body height 182.9 cm Jules Ayala NGHIA-C Work Phone: [employer] 12-16-2023 11:10-0500 Body mass index (BMI) [Ratio] 25.77 kg/m2 Jules Ayala PA-C Work Phone: [employer] 12-16-2023 11:10-0500 Body weight 86.18 kg Jules Ayala PA-C Work Phone: [employer] 12-16-2023 11:10-0500 Diastolic blood pressure 76 mm[Hg] Jules Ayala PA-C Work Phone: [employer] 12-16-2023 11:10-0500 Heart rate 61 /min Jules Ayala PA-C Work Phone: [employer] 12-16-2023 11:10-0500 Systolic blood pressure 102 mm[Hg] Jules Ayala PA-C Work Phone: [employer] 10-04-2022 12:00-0500 Body height 182.88 cm Clara Solano Other [facility] Other 10-04-2022 12:00-0500 Body mass index (BMI) [Ratio] 25.09 kg/m2 Clara Solano Other [facility] Other 10-04-2022 12:00-0500 Body temperature 98.4 [degF] Clara Solano Other [facility] Other 10-04-2022 12:00-0500 Body weight 83.92 kg Clara Solano Other [facility] Other 10-04-2022 12:00-0500 Diastolic blood pressure 79 mm[Hg] Clara Millermond Other [facility] Other 10-04-2022 12:00-0500 Respiratory rate 18 /min Clara Solano Other [facility] Other 10-04-2022 12:00-0500 SaO2% (BldA) [Mass fraction] 98 % Clara Solano Other [facility] Other 10-04-2022 12:00-0500 Systolic blood pressure 115 mm[Hg] Clara Solano Other [facility] Other 06-28-2022 10:20-0400 Body height 182.88 cm Cally Patelault Other [employer] Other 06-28-2022 10:20-0400 Body mass index (BMI) [Ratio] 24.68 kg/m2 Cally Patelault Other [facility] Other 06-28-2022 10:20-0400 Body temperature 97.9 [degF] Cally Ema Other [facility] Other 06-28-2022 10:20-0400 Body weight 82.56 kg Cally Ema Other [facility] Other 06-28-2022 10:20-0400 Diastolic blood pressure 70 mm[Hg] Cally Ema Other [facility] Other 06-28-2022 10:20-0400 Respiratory rate 16 /min Cally Ema Other [facility] Other 06-28-2022 10:20-0400 SaO2% (BldA) [Mass fraction] 100 % Cally Roy Other [employer] Other 06-28-2022 10:20-0400 Systolic blood pressure 113 mm[Hg] Cally Roy Other [facility] Other 01-15-2020 07:10-0500 Body Temperature 98.4 [degF] [facility] [place] [place] 01-15-2020 07:10-0500 BP Diastolic 85 mm[Hg] [facility] [place] [facility] [place] 01-15-2020 07:10-0500 BP Systolic 129 mm[Hg] Fabián Campbell [facility] [place] [facility] [place] 01-15-2020 07:10-0500 Pulse (Heart Rate) 65 /min [facility]str[facility] [place] 01-15-2020 07:10-0500 Pulse Oximetry 94 % [facility] [place] [facility] [place] 01-15-2020 07:10-0500 Respiratory Rate 16 /min [facility] [place] 01-14-2020 07:58-0500 BMI (Body Mass Index) 26.99 kg/m2 Fabián Campbell [facility] [place] 01-14-2020 07:58-0500 Body weight 90.27 kg Fabián Estrada [facility] [place] 01-14-2020 07:58-0500 Height 182.9 cm Fabián Estrada [facility] [place] 12-31-2019 12:08-0500 BMI (Body Mass Index) 27.12 kg/m2 [facility] [[email or web address] [place] 12-31-2019 12:08-0500 Body weight 90.7 kg Sta [facility] [place] 12-31-2019 12:08-0500 BP Diastolic 82 mm[Hg] Sta [facility] [place] 12-31-2019 12:08-0500 BP Systolic 134 mm[Hg] Sta [facility] [place] 12-31-2019 12:08-0500 Height 182.9 cm Sta 1 [facility] [place] , [place] 12-31-2019 12:08-0500 Pulse (Heart Rate) 75 /min Sta 1 [facility] [place] 12-31-2019 12:08-0500 Pulse Oximetry 100 % Sta 1 [facility] [place] , [place] 12-31-2019 12:08-0500 Respiratory Rate 16 /min Sta 1 [facility] [place] Encounters Encounter Date Encounter Type Care Provider Facility Start: 12-16-2023 End: 12-16-2023 ambulatory JULES AYALA [facility] Start: 12-16-2023 End: 12-16-2023 Office outpatient new 45 minutes Jules Ayala PA-C Work Phone: [facility] Comment on above: Paresthesia of left upper extremity (Primary Dx); Left carpal tunnel syndrome; Cubital tunnel syndrome on left; Left hand weakness Start: 12-15-2023 Telephone encounter Marylin dexter [employer] Work Phone: [facility] Start: 12-09-2023 Telephone encounter [facility] Comment on above: NEW PATIENT REFERRAL ; NEW PATIENT QUESTIONS Start: 11-22-2023 End: 11-22-2023 ambulatory MARYLIN AICHHOLZ Not Available Start: 10-31-2023 End: 10-31-2023 ambulatory MARYLIN AICHHOLZ Not Available Start: 10-14-2023 End: 11-14-2023 ambulatory SAV Hardy [facility] Start: 10-04-2022 (URG) Urgent Care Visit Clara frazier [facility] Start: 10-04-2022 End: 10-04-2022 ambulatory Clara Solano Other [facility] Other Start: 09-21-2022 End: 09-22-2022 ambulatory LOAN EXAMINER MARYLIN AICHHOLZ Facility:[facility] Start: 08-04-2022 End: 08-05-2022 ambulatory LOAN EXAMINER MARYLIN AICHHOLZ Facility:[facility] Start: 06-28-2022 Office outpatient vi sit 15 minutes Cally Roy [facility] Start: 06-28-2022 End: 06-28-2022 ambulatory Cally Roy [facility] Other Start: 06-28-2022 End: 06-28-2022 Patient encounter procedure PHYSICIAN OLIMPIA FARIAS [facility] Start: 03-19-2022 End: 03-20-2022 ambulatory LOAN EXAMINER MARYLIN JOHNMosesRUPAL Facility:[facility] Start: 01-13-2022 End: 01-14-2022 ambulatory LOAN EXAMINER MARYLIN JOHNMosesRUPAL Facility:[facility] Start: 11-20-2021 End: 11-21-[address] KRISTIN GRACE JR Facility:[facility] Start: 09-30-2021 End: 09-30-2021 ambulatory LOAN EXAMINER MARYLIN JOHNMosesRUPAL Facility:[facility] Start: 01-14-2020 End: 01-15-2020 Patient encounter procedure [facility] Start: 01-14-2020 End: 01-15-2020 Subsequent hospital visit by physician Fabián Campbell Work Phone: [facility] Start: 12-31-2019 End: 01-05-2020 Patient encounter procedure [facility] Start: 12-31-2019 End: 01-04-2020 Subsequent hospital visit by physician Fela Zurita Rm 1 [facility] PRE-ADMIT TESTING Procedures Date Procedure Procedure Detail Performing Clinician Start: 06-28-2022 Plain X-ray of right hand PHYSICIAN OLIMPIA FARIAS Start: 08-19-2021 Colonoscopy Marylin Aichh olz PILLAR WORKER Work Phone: Start: 01-15-2020 INCENTIVE SPIROMETRY RT FABIÁN KRISTOF Start: 01-15-2020 INITIATE OXYGEN THER APY PROTOCOL FABIÁN KRISTOF Start: 01-15-2020 DISCHARGE PATIENT FABIÁN KRISTOF Start: 01-15-2020 INCENTIVE SPIROMETRY RT FABIÁN KRISTOF Start: 01-15-2020 Basic metabolic pane l calcium total FABIÁN KRISTOF Start: 01-15-2020 Blood count complete automated FABIÁN KRISTOF Start: 01-15-2020 Basic metabolic pane l calcium total Fabián Kristof Work Phone: Start: 01-15-2020 Blood count complete automated Fabián Kristof Work Phone: Start: 01-15-2020 INTAKE AND OUTPUT FABIÁN KRISTOF Start: 01-15-2020 INCENTIVE SPIROMETRY RT FABIÁN KRISTOF Start: 01-14-2020 INCENTIVE SPIROMETRY RT FABIÁN KRISTOF Start: 01-14-2020 INCENTIVE SPIROMETRY RT FABIÁN CORTEZISTOF Start: 01-14-2020 INCENTIVE SPIROMETRY RT FABIÁN KRISTOF Start: 01-14-2020 CARE ORDER/INSTRUCTION FABIÁN CORTEZISTOF Start: 01-14-2020 PLACE INTERMITTENT PNEUMATIC COMPRESSION DEVICE FABIÁN CORTEZISTOF Start: 01-14-2020 PT EVAL AND TREAT FABIÁN CORTEZISTOF Start: 01-14-2020 ACTIVITY TOLERATED Kaylyn CORTEZISTOF Start: 01-14-2020 AMBULATE PATIENT FABIÁN CORTEZISTOF Start: 01-14-2020 DIET GENERAL FABIÁN ORTIZ TOF Start: 01-14-2020 FULL CODE FABIÁN ORTIZ TOF Start: 01-14-2020 INCENTIVE SPIROMETRY RT FABIÁN CORTEZISTOF Start: 01-14-2020 INITIATE OXYGEN THER APY PROTOCOL FABIÁN CORTEZISTOF Start: 01-14-2020 INTAKE AND OUTPUT FABIÁN CORTEZISTOF Start: 01-14-2020 NEURO/VASCULAR CHECKS Kaylyn CORTEZISTOF Start: 01-14-2020 NOTIFY PHYSICIAN (SPECIFY) FABIÁN CORTEZISTOF Start: 01-14-2020 NURSING COMMUNICATION Kaylyn CORTEZISTOF Start: 01-14-2020 PLACE CERVICAL COLLAR Kaylyn CORTEZISTOF Start: 01-14-2020 VITAL SIGNS FABIÁN CORTEZIS TOF Start: 01-14-2020 WOUND CARE FABIÁN CORTEZIS TOF Start: 01-14-2020 PATIENT STATUS (FROM ED OR OR/PROCEDURAL) FABIÁN CORTEZISTOF Start: 01-14-2020 TRANSFER PATIENT FABIÁN CORTEZISTOF Start: 01-14-2020 Radex spine cervical 2 or 3 views FABIÁN KRISTOF Start: 01-14-2020 FLUORO FOR SURGICAL PROCEDURES FABIÁN KRISTOF Start: 01-14-2020 Radex spine cervical 2 or 3 views Fabián Cortezistof Work Phone: Start: 01-14-2020 FLUORO FOR SURGICAL PROCEDURES Fabián Cortezistof Work Phone: Start: 01-14-2020 End: 01-14-2020 Arthrd ant interdy cervcl belw c2 ea addl ntrspc Fabián Estradaof Work Phone: Start: 12-31-2019 Antibody screen Sta 1 Start: 12-31-2019 Basic metabolic pane l calcium total FABIÁN ESTRADAOF Start: 12-31-2019 Blood count complete auto&auto difrntl wbc FABIÁN ESTRADAOF Start: 12-31-2019 Prothrombin time FABIÁN CORTEZISTOF Start: 12-31-2019 Thromboplastin time partial plasma/whole blood FABIÁN ESTRADAOF Start: 12-31-2019 TYPE AND SCREEN FABIÁN Patiño RISTOF Start: 12-31-2019 Ecg routine ecg w/le ast 12 lds w/i&r FABIÁN CORTEZISTOF Start: 12-31-2019 EKG REPORT FABIÁN DIANA TOF Start: 12-31-2019 Iadna s aureus methi cillin resist amp probe tq FABIÁN CORTEZISTOF Start: 12-31-2019 Urinalysis microscopic only FABIÁN ESTRADAOF Start: 12-31-2019 Urnls dip stick/tabl et rgnt auto w/o microscopy FABIÁN ESTRADAOF Start: 12-31-2019 Basic metabolic pane l calcium total Fabián Campbell Work Phone: Start: 12-31-2019 Blood count complete auto&auto difrntl wbc Fabián Campbell Work Phone: Start: 12-31-2019 Blood typing serologic abo Fabián Campbell Work Phone: Start: 12-31-2019 Prothrombin time Fabián Estradaof Work Phone: Start: 12-31-2019 Thromboplastin time partial plasma/whole blood Fabián Campbell Work Phone: Start: 12-31-2019 Ecg routine ecg w/le ast 12 lds i&r only Fabián Cortezistof Work Phone: Start: 12-31-2019 EKG REPORT Hpf Scanni ng Start: 12-31-2019 Iadna s aureus methi cillin resist amp probe tq Fabián Cortezistof Work Phone: Start: 12-31-2019 Urinalysis microscopic only Fabián Cortezistof Work Phone: Start: 12-31-2019 Urnls dip stick/tabl et rgnt auto w/o microscopy Fabián Campbell Work Phone: Plan of Treatment Date Care Activity Detail Author Start: 08-19-2031 Screening for malign ant neoplasm of colon [facility] Start: 05-13-2024 Influenza vaccination Influenza Vacc ine (#1) [facility] Comment on above: Postponed from 07/15 (Patient Refused) Start: 12-16-2023 End: 12-16-2023 Patient encounter procedure 12/16/2023 11:00 AM EST Office Visit [facility] [address] [place] Vincent [facility] [place] [address] Jules Ayala PA-C [address] [place] [address] [facility] Start: 10-26-2023 Adult BMI Screening Adult BMI Screen ing [facility] Start: 10-26-2023 Tobacco Screening Tobacco Screening [facility] Start: 07-15-2023 COVID-19 Vaccine ( season) COVID-19 Vaccine ( season) [facility] Start: 07-15-2023 Influenza vaccination Influenza Vacc ine [facility] Start: 2022 Administration of varicella zoster vaccine Zoster (Shingles) Vaccine (1 of 2) [facility] Start: 2022 Shingles Vaccine (1 of 2) Bernabe gles Vaccine (1 of 2) [place], [place] Start: 01-14-2020 End: 01-14-2020 Hospital Encounter [facility] Comment on above: C 5-6 ACDF- MEDTRONI CS 1 ROCKY Start: 07-15-2019 Influenza vaccination Flu vaccine (# 1) [place], [place] Start: 2012 Diabetes screen Diabetes screen [place], [place] Start: 2012 Lipid screen Lipid screen [place], [place] Start: 1991 DTaP,Tdap and Td Vac cines (1 - Tdap) DTaP,Tdap and Td Vaccines (1 - Tdap) [facility] Start: 1990 Adult BMI Follow Up Plan Adult BMI Follow Up Plan [facility] Start: 1987 HIV screen HIV screen [place], [place] Start: 1984 Depression Screening Depression Scre ening [facility] Start: 1983 DTaP/Tdap/Td vaccine (1 - Tdap) DTaP/Tdap/Td vaccine (1 - Tdap) [place] Start: 1978 Pneumococcal 0-64 ye ars Vaccine (1 of 1 - PPSV23) Pneumococcal 0-64 years Vaccine (1 of 1 - PPSV23) [place] Start: 1972 Screening for malign ant neoplasm of colon [facility] End: 01-17-2020 Basic metabolic 2000 panel Basic Metabolic Panel Lab Routine Daily for 3 Occurrences starting 01/15/2020 until 01/17/2020, 1 completed [place] Comment on above: Daily for 3 Occurren rossana starting 01/15/2020 until 01/17/2020, 1 completed End: 01-17-2020 CBC CBC Lab Routine Daily for 3 Occurrences starting 01/15/2020 until 01/17/2020, 1 completed [place] Comment on above: Daily for 3 Occurren rossana starting 01/15/2020 until 01/17/2020, 1 completed Incentive spirometry Incentive s pirometry Respiratory Care Routine Every 2hr while awake until discontinued starting 01/14/2020 [place] Comment on above: Every 2hr while awak e until discontinued starting 01/14/2020 Initiate Oxygen Ther apy Protocol Initiate Oxygen Therapy Protocol Respiratory Care Routine Daily until discontinued starting 01/14/2020 [place] Comment on above: Daily until disconti nued starting 01/14/2020 Payers Date Payer Category Payer Private Health Insurance [id number] 2023 Private Health Insurance [id number] 2022 Self-pay [id number] 2020 Unknown ANTHEM BLUE ACCE SS (PPO) [id number] 2020-Present [phone] [address] [place] [address] [id number] 2019 Unknown MEDICAL [employer] M [employer]ASHA [employer] [address] xxxxxxxxxxxx 2019-Present [phone] [address] [place] [address] xxxxxxxxxxxx [id number] 2019 Unknown [id number] 1972 Unknown [id number] [id number] .177 1972 Unknown [id number] 2.16.840.1.516314.3.579.2 .177 1972 Unknown [id number] 2.16.840.1.452872.3.579.2 .593 1972 Unknown [id number] 2.16.840.1.507515.3.579.2 .593 1972 Unknown [id number] 2.16.840.1.165043.3.579.2 .593 1972 Unknown [id number] 2.16.840.1.446989.3.579.2 .593 1972 Unknown [id number] 2.16.840.1.887296.3.579.2 .593 1972 Unknown [id number] 2.16.840.1.397362.3.579.2 .593 1972 Unknown [id number] 2.16.840.1.600786.3.579.2 .1259 1972 Unknown [id number] 2.16.840.1.651383.3.579.2 .1259 1972 Unknown [id number] 2.16.840.1.174239.3.579.2 .1286 1972 Unknown [id number] 2.16.840.1.897887.3.579.2 .1286 1959 [facility] [id number] Medicare Medicare [id number] Medicare Medicare-IP Part A Only [id number] [id number] Medicare [id number] Unknown HCAP/HFA/FAP Active [id number] Unknown [id number] .531 Unknown [id number] Social History Date Type Detail Facility Start: 12-31-2019 End: 10-26-2023 Tobacco smoking status NHIS Current every day smoker [facility] History of tobacco use Cigarette Smoker M [place] Start: 12-31-2019 End: 11-22-2023 Cigarettes smoked current (pack per day) - Reported [place] Start: 12-31-2019 End: 01-14-2020 Alcohol intake Lifetime non-drinker (finding) [place] Start: 12-31-2019 History SDOH Alcohol Frequency 1 [place] Start: 12-31-2019 Alcohol Comment quit 15 years ago (written 12/31/2019) [place] Start: 1970 Sex Assigned At Not on file [place] Start: 10-26-2022 End: 11-22-2023 Sex Assigned At [facility] [employer] [facility] Start: 1970 Sex Assigned At Male F [facility] Start: 10-21-2022 End: 12-16-2023 Tobacco use and exposure Smokeless tobacco non-user [facility] Start: 10-27-2022 End: 12-16-2023 Alcohol intake Current non-drinker of alcohol (finding) [facility] Childcare Unknown [facility] Start: 11-22-2023 Alcohol intake Ex-drinker (finding) [facility] Start: 10-26-2023 Tobacco Comment 11-20 cigarettes/day [facility] Medical Equipment Procedure Code Equipment Code Equipment Origin al Text Equipment Identifier Dates Impl Sealant Wendy giflo Hemostat Matric [id number] Start: 01-14-2020 Sara-Putty Proge nix Plus 1cc - [id number] Start: 01-14-2020 Impl Cage Spine [id number] Start: 01-14-2020 Screw 3.5x15mm [id number] Start: 01-14-2020 Plate Zevo 19mm [id number] Start: 01-14-2020 Screw Spine Distraction Pin Vertebral 14mm [id number] Start: 01-14-2020 Screw Spine Distraction Pin Vertebral 14mm [id number] Start: 01-14-2020 Clinical Notes 08-05-2021 to 12-16-2023 Jules Ayala PA-C - 12/16/2023 11:00 AM ESTTelephone Encounter - Marylin Morales, ADAN - 12/15/2023 6:11 PM ESTTelephone Encounter - Marylin Morales, ADAN - 12/15/2023 6:11 PM EST Note Date & Type Note Facility 12-16-2023 History of Presen t illness Narrative [facility] Office Note 12/16/2023 11:20 AM Patient info: Jenaro Carrera is a 53 y.o. male Account No.: [id number] Acct: : 1970 PCP: FAVIAN SPRAGUE Chief Complaint: Patient, 53 year old right hand dominant male, presents today for initial Neurological evaluation regarding numbness and tingling. Referred by Taylor BALLESTEROS Jenaro is present in the office today by himself. HPI: Jenaro complains of numbness and tingling throughout the LUE down through digits 3 and 4 on the left hand. This has been ongoing and progressively worsening over the last few months. He reports dropping objects from the left hand often. He notably works at a manufacturing plant. By the time he gets home from work he can hardly use his LUE and it is throbbing in pain. Also, his left hand often feels asleep upon waking in the morning. Jenaro has a hx of ACDF C5-C6. He follows with pain management for ongoing cervical spine pain. Treatment has included LOTUS/facet blocks and medication. Current medications include Oxycodone, Ibuprofen, Flector Patch, and Gabapentin 600 mg TID. Jenaro recently completed a Cervical MRI without contrast on 11/30/23 at [facility]. - C2-C3: Early degenerative disc disease is present without focal protrusion or neural impingement. - C3-C4: Early degenerative disc disease is present without focal protrusion or neural impingement. - C4-C5: Early degenerative disc disease is present without focal protrusion or neural impingement. - C5-C6: Anterior fusion with resultant metallic susceptibility artifact. Mild posterior disc/osteophyte complex no central canal or right foraminal stenosis. Moderate narrowing of the left neural foramen secondary to degenerative facet osteoarthropathy - C6-C7: Moderate to severe disc space narrowing and disc desiccation. Moderate diffuse disc/osteophyte complex. Moderate to severe bilateral foraminal stenosis. Mild narrowing of the central canal down to 8.5 mm in anterior posterior dimension. - C7-T1:. No significant disc/facet abnormality, spinal stenosis, or foraminal stenosis. Jenaro states he has an EMG/NCV study scheduled on 12/27/23 at the [facility]. He notably has a prior hx of right CTS s/p carpal tunnel release. He also states he has an evaluation scheduled for later in December (2023) with a spine surgeon, Dr. Keller. Past Medical Hx: See EMR Social Hx: Tobacco: 1/2 ppd smoker ETOH: none Illicit Substances: none Family Hx: Mother: --- Father: --- Siblings: --- Surgical Hx: See EMR Allergies: See EMR Review of Systems: Constitutional: Negative for fever, chills, sweats, or unintentional weight loss Eyes: Negative HENT: Negative Cardiovascular: Negative for chest pain and palpitations Respiratory: Negative for cough and shortness of breath Gastrointestinal: Negative for nausea, vomiting, abdominal pain and diarrhea Genitourinary: Negative for dysuria, urgency, frequency, or hematuria Musculoskeletal: - cervicalgia Skin: Negative Neurological: - as noted in the HPI Psychiatric/Behavioral: Negative Endocrine: Negative Hem/Onc: Negative Allergy/Immunology: Negative Vitals: BP: 102/76 HR: 61 Weight: 86.2 kg Physical Exam: General: well groomed, appears stated age Neurological Exam: The patient is awake, alert, and attentive Speech and language are normal Normal affect, with normal orientation and cognition EOMI, PERRL, No gross visual field deficits Face is symmetric, Tongue protrudes midline Palate rises symmetrically with uvula midline Shoulder shrug is strong bilaterally Nose to finger testing is without dysmetria Upper Extremity Drift is (-) Fine motor skills are approximately equal in each hand Tremor: (-) Sensation is reduced in the LUE in glove distribution DTR's are 1+ throughout Strength throughout the Right Upper Extremity is 5/5 except at the thumb secondary to injury during the Fall (2022) Strength throughout the Left Upper Extremity is 5/5, except 4/5 with hand grasp, 4/5 finger extensors, and 4/5 at the thumb Strength throughout the Lower Extremities is 5/5 Tinel (+) left wrist and left elbow Muscle Tone throughout the extremities is normal Romberg is (-) Gait is steady with normal base, normal stride and bilateral arm swing ASSESSMENT: Jenaro is a 53 year old right hand dominant male with a hx of right CTS s/p release, tobacco use, and ACDF C5-C6 with continued cervicalgia and torticollis who has left upper extremity paresthesias, most likely secondary to left carpal tunnel syndrome and left cubital syndrome, though recent Cervical MRI completed on 11/30/23 suggests sxs may be radicular from C5-C6 and C6-C7 levels. PLAN: Cock-up splint to wear on the left wrist while sleeping EMG/NCV study is pending; 12/27/23 Continue current medications Follow up in the office in the future pending results of #2 above Electronically Signed by: Jules Ayala PA-C 12/16/23 1239 [facility] Telephone encounter Note Refill request for diovan denied as pt is taking Entresto LA [facility] 12-15-2023 Miscellaneous Notes Refill request for diovan denied as pt is taking Entresto LA documented in this encounter [facility] 12-09-2023 Miscellaneous Notes First Attempt Made from [employer]- Left Voicemail New patient referral received. Dx:Numbness and tingling in both hands [R20.0, R20.2]/ Referred by:FAVIAN Tellez Referred to: Providers patient can see in clinic: JULES CHOUDHARY Please contact patient to schedule from referral, Thanks! PLEASE REVIEW PLAN OVER THE PHONE AND ADVISE PATIENT TO BRING UPDATED INSURANCE INFORMATION TO THEIR NEW PATIENT APPOINTMENT Please ask the following questions to the new patient that you are schedulin. IS THIS DUE TO AN ACCIDENT? -patient stated no 2. IS THIS WORKER'S COMP? PLEASE VERIFY IF THIS IS WORKERS COMP AND DOCUMENT (We do not accept any new workers comp cases) -no 3. WHAT INSURANCE? -[facility] 4. HAVE YOU EVER BEEN SEEN BY A NEUROLOGIST BEFORE? IF YES, WHO AND WHEN? IS THIS A SECOND OPINION? -NO 5. PATIENT IS SCHEDULED ON/WITH: -[facility]20[facility] documented in this encounter [facility] 12-09-2023 Telephone encounter Note First Attempt Made from [employer]- Left Voicemail New patient referral received. Dx:Numbness and tingling in both hands [R20.0, R20.2]/ Referred by:FAVIAN Tellez Referred to: Providers patient can see in clinic: JULES CHOUDHARY Please contact patient to schedule from referral, Thanks! PLEASE REVIEW PLAN OVER THE PHONE AND ADVISE PATIENT TO BRING UPDATED INSURANCE INFORMATION TO THEIR NEW PATIENT APPOINTMENT [facility] [employer] 12-09-2023 Telephone encounter Note Please ask the following questions to the new patient that you are schedulin. IS THIS DUE TO AN ACCIDENT? -patient stated no 2. IS THIS WORKER'S COMP? PLEASE VERIFY IF THIS IS WORKERS COMP AND DOCUMENT (We do not accept any new workers comp cases) -no 3. WHAT INSURANCE? -[facility] 4. HAVE YOU EVER BEEN SEEN BY A NEUROLOGIST BEFORE? IF YES, WHO AND WHEN? IS THIS A SECOND OPINION? -NO 5. PATIENT IS SCHEDULED ON/WITH: -12/16/2023 WITH JULES HERNANDEZ [place] [facility] 10-04-2022 Evaluation note Encounter Date Diagnosis Assessment Notes Sep, Carpal tunnel syndrome of right wrist (ICD-10 - G56.01) Carpal tunnel syndrome home care material was printed Wear the wrist splint is much as possible. Continue home medications as prescribed. Follow-up with the orthopedic surgeon of your choice for further evaluation of your carpal tunnel syndrome. Off work today tomorrow and Tuesday. [employer] [facility] 08-15-2022 Evaluation note* Encounter Date Diagnosis Assessment Notes Treatment Notes Treatment Clinical Notes Jun, Pain in right hand (ICD-10 - M79.641) . Apply ice to affected area 3-4 times daily (Do not place ice source directly on skin, must cover with towel-like material). Take medication as directed. Rest and elevate sore extremity as much as possible. Do not take OTC medication pain relievers if prescription of medication given in office today. Contact office if no improvement of symptoms and we will help you get into a specialist. [employer] Other 10-19-2021 NotePulmonary Medicine COVID-19 Frequently Asked Questions COVID-19 (coronavirus disease) is an infection that is caused by a large family of viruses. Some viruses cause illness in people and others cause illness in animals like camels, cats, and bats. In some cases, the viruses that cause illness in animals can spread to humans. Where did the coronavirus come from? In October 2019, [place] told the World Health Organization (WHO) of several cases of lung disease (human respiratory illness). These cases were linked to an open seafood and livestock market in the city of [facility]. The link to the seafood and livestock market suggests that the virus may have spread from animals to humans. However, since that first outbreak in October, the virus has also been shownto spread from person to person. What is the name of the disease and the virus? Disease name Early on, this disease was called novel coronavirus. This is because scientists determined that thedisease was caused by a new (novel) respiratory virus. The World Health Organization (WHO) has now named the disease COVID-19, or coronavirus disease. Virus name The virus that causes the disease is called severe acute respiratory syndrome coronavirus 2 (SARS-CoV-2). More information on disease and virus naming World Health Organization (WHO): www.who.int/emergencies/diseases/clarr-znvlxhqzyry-7982/technical-g uidance/lwhpnx-zes-olknolsrsqv-disease-(covid-2019)-ozg-tdp-wggmt-whfh-paogve-df Who is at risk for complications from coronavirus disease? Some people may be at higher risk for complications from coronavirus disease. This includes older adults and people who have chronic diseases, such as heart disease, diabetes, and lung disease. If you are at higher risk for complications, take these extra precautions: ? Avoid close contact with people who are sick or have a fever or cough. Stay at least 3?6 ft (1?2 m) away from them, if possible. ? Wash your hands often with soap and water for at least 20 seconds. ? Avoid touching your face, mouth, nose, or eyes. ? Keep supplies on hand at home, such as food, medicine, and cleaning supplies. ? Stay home as much as possible. ? Avoid social gatherings and travel. How does coronavirus disease spread? The virus that causes coronavirus disease spreads easily from person to person (is contagious). There are also cases of community-spread disease. This means the disease has spread to: ? People who have no known contact with other infected people. ? People who have not traveled to areas where there are known cases. It appears to spread from one person to another through droplets from coughing or sneezing. Can I get the virus from touching surfaces or objects? There is still a lot that we do not know about the virus that causes coronavirus disease. Scientists are basing a lot of information on what they know about similar viruses, such as: ? Viruses cannot generally survive on surfaces for long. They need a human body (host) to survive. ? It is more likely that the virus is spread by close contact with people who are sick (direct contact), such as through: ? Shaking hands or hugging. ? Breathing in respiratory droplets that travel through the air. This can happen when an infected person coughs or sneezes on or near other people. ? It is less likely that the virus is spread when a person touches a surface or object that has thevirus on it (indirect contact). The virus may be able to enter the body if the person touches a surface or object and then touches his or her face, eyes, nose, or mouth. Can a person spread the virus without having symptoms of the disease? It may be possible for the virus to spread before a person has symptoms of the disease, but this ismost likely not the main way the virus is spreading. It is more likely for the virus to spread by being in close contact with people who are sick and breathing in the respiratory droplets of a sick person's cough or sneeze. What are the symptoms of coronavirus disease? Symptoms vary from person to person and can range from mild to severe. Symptoms may include: ? Fever. ? Cough. ? Tiredness, weakness, or fatigue. ? Fast breathing or feeling short of breath. These symptoms can appear anywhere from 2 to 14 days after you have been exposed to the virus. If you develop symptoms, call your health care provider. People with severe symptoms may need hospital care. If I am exposed to the virus, how long does it take before symptoms start? Symptoms of coronavirus disease may appear anywhere from 2 to 14 days after a person has been exposed to the virus. If you develop symptoms, call your health care provider. Should I be tested for this virus? Your health care provider will decide whether to test you based on your symptoms, history of exposure, and your risk factors. How does a health care provider test for this virus? Health care providers will collect samples to send for testing. Samples may in (more content not included)...[facility]09-22-2021 NoteChief Complaint consultation for weight loss HPI Staff 50 year old male presents on consultation from Marylin Morales [employer] WORK[employer] for unintentional weight loss. Weight loss of greater than 50# in the past 4 months. Verbalized diffuse abdominal pain. Denies rectal pain, nausea, vomiting or change in bowel habits. CT ABD 06/30/21 with adrenal masses. Thyroid US completed 06/30/21 with thyroiditis. MRI abdomen 07/21/21 with adrenal adenomas and possible cholelithiasis. No previous colonoscopy. No family history of colon cancer. History of Present Illness 50 yo male with h/o DDD, spinal stenosis, on chronic narcotics for pain management, fibromyalgia; referred for 50 lb unintentional wt loss over last 4 months; denies change in appetite or food intake; no N/V; no bowel changes or blood in stools; intermittent sharp abdominal pains radiating around from back throughout abdomen; no triggering factors; no previous endoscopy, no previous abdominal operations; recent abd/pelvic ct scan with small adrenal lesions; MRI with likely adenomas; mild anemiaon lab work; no fmhx of GI malignancy or IBD; on Ibuprofen daily, no asa, no SBE prophylaxis. Review of Systems PHQ Score Initial Depression Screen Score: 0 ROS - Provider Constitutional: no fever, no sweats, yes weight loss. Eyes: no glasses, no blurred vision, no visual loss. ENMT: no dentures, no hoarseness, no swallowing difficulties, no hearing loss, no ear infection(s),no nose bleeds. Cardiovascular: normal blood pressure, no chest pain, regular heartbeat, no heart murmur. Respiratory: no shortness of breath, no cough, no asthma, no wheezing. Gastrointestinal: no nausea, no vomiting, no diarrhea, no constipation, no blood in stool, no change in bowel habits, mild abdominal pain, no hepatitis. Genitourinary: no kidney stones, no urine infection, no dysuria. Musculoskeletal: moderate pain, no weakness. Skin: no changing moles, no rash, no skin lumps. Neurologic: no seizures, no epilepsy, no headache. Psychiatric: no emotional or psychiatric problem. Heme/Lymph: no bleeding problems, no anemia, no blood clots, no transfusions. Allergy/Immunologic: no swollen lymph nodes/glands, no IV drug abuse. Other: Additional ROS info: Except as noted in the above Review of Systems and in the History of Present Illness, all other systems have been reviewed and are negative or noncontributory. Physical Exam Vitals & Measurements T: 36.5 ?C (Temporal Artery) HR: 76(Peripheral) RR: 16 BP: 118/62 HT: 182.88 cm HT: 182.9 cm WT: 80.4 kg WT: 80.4 kg BMI: 24.04 HEENT: normal conjunctiva, sclera clear, no scleral icterus, EOM intact, PERRLA, oral mucosa moist without lesions. Neck: trachea midline, no mass, symmetric, no thyromegaly or nodules, no adenopathy Respiratory: lungs CTA, respirations non labored. Cardiovascular: regular rate and rhythm, no murmur, no pedal edema or varicosities. Gastrointestinal: soft, non distended, no tenderness, no masses, no palpable hernias, diastasis recti no, no hepatosplenomegaly; normal bs Lymphatic: no cervical adenopathy, Musculoskeletal: normal gait, digits and nails without infection, nodes, cyanosis, clubbing. Skin: no rashes, no lesions, no ulcers, no subcutaneous nodules, induration. Psychiatric/Neuro: oriented to time, place, person, judgement normal, affect appropriate for age, insight intact, no focal deficits. Tests: labs reviewed, x-rays reviewed, review of old records completed, Discussed surgical options, risks, and possible complications with patient. Assessment/Plan 1. Unintentional weight loss of more than 10 pounds (R63.4: Abnormal weight loss) plan EGD and colonoscopy under anesthesia for further evaluation, informed consent obtained. 2. Abdominal pain, generalized (R10.84: Generalized abdominal pain) see # 1 3. Anemia (D64.9: Anemia, unspecified) see # 1 4. Chronic narcotic use (F11.90: Opioid use, unspecified, uncomplicated) continue 5. Tobacco use (Z72.0: Tobacco use) We strongly recommend to quit tobacco use. Cigarette smoking harms nearly every organ of the body, causes many diseases, and reduces the health of smokers in general. Quitting smoking lowers your risk for smoking-related diseases and can add years to your life. We encourage you to visit www.smokefree.gov access to helpful resources including free telephone support. If you decide on prescription treatment to help you quit, your family doctor would be happy to provide these. Follow-up No qualifying data available Patient Education Upper Endoscopy, Adult Colonoscopy, Adult Problem List/Past Medical History Ongoing Abdominal pain, generalized Adrenal mass Anemia BMI 24.0-24.9, adult Chronic narcotic use DDD (degenerative disc disease), lumbar Fibromyalgia Genital warts due to HPV (human papillomavirus) GERD (gastroesophageal reflux disease) Spinal stenosis Tobacco use Tobacco user Unintentional weight loss Unintentional weight loss of more yury (more content not included)...[facility] HospitalComment on above:Result Comment: Electronically Signed By: KARLEY REYES, Sal Ashby.br\Date and Time Signed: 08/05/21 17:33 [id number] Note Gastroenterology Upper Endoscopy, Adult Upper endoscopy is a procedure to look inside the upper GI (gastrointestinal) tract. The upper GI tract is made up of: ? The part of the body that moves food from your mouth to your stomach (esophagus). ? The stomach. ? The first part of your small intestine (duodenum). This procedure is also called esophagogastroduodenoscopy (EGD) or gastroscopy. In this procedure, your health care provider passes a thin, flexible tube (endoscope) through your mouth and down your esophagus into your stomach. A small camera is attached to the end of the tube. Images from the camera appear on a monitor in the exam room. During this procedure, your health care provider may also remove a small piece of tissue to be sent to a lab and examined under a microscope (biopsy). Your health care provider may do an upper endoscopy to diagnose cancers of the upper GI tract. You may also have this procedure to find the cause of other conditions, such as: ? Stomach pain. ? Heartburn. ? Pain or problems when swallowing. ? Nausea and vomiting. ? Stomach bleeding. ? Stomach ulcers. Tell a health care provider about: ? Any allergies you have. ? All medicines you are taking, including vitamins, herbs, eye drops, creams, and mbfz-ylr-pvuorju medicines. ? Any problems you or family members have had with anesthetic medicines. ? Any blood disorders you have. ? Any surgeries you have had. ? Any medical conditions you have. ? Whether you are or may be . What are the risks? Generally, this is a safe procedure. However, problems may occur, including: ? Infection. ? Bleeding. ? Allergic reactions to medicines. ? A tear or hole (perforation) in the esophagus, stomach, or duodenum. What happens before the procedure? Staying hydrated Follow instructions from your health care provider about hydration, which may include: ? Up to 2 hours before the procedure ? you may continue to drink clear liquids, such as water, clear fruit juice, black coffee, and plain tea. Eating and drinking restrictions Follow instructions from your health care provider about eating and drinking, which may include: ? 8 hours before the procedure ? stop eating heavy meals or foods, such as meat, fried foods, or fatty foods. ? 6 hours before the procedure ? stop eating light meals or foods, such as toast or cereal. ? 6 hours before the procedure ? stop drinking milk or drinks that contain milk. ? 2 hours before the procedure ? stop drinking clear liquids. Medicines Ask your health care provider about: ? Changing or stopping your regular medicines. This is especially important if you are taking diabetes medicines or blood thinners. ? Taking medicines such as aspirin and ibuprofen. These medicines can thin your blood. Do not take these medicines unless your health care provider tells you to take them. ? Taking reho-zsu-xflawkp medicines, vitamins, herbs, and supplements. General instructions ? Plan to have someone take you home from the hospital or clinic. ? If you will be going home right after the procedure, plan to have someone with you for 24 hours. ? Ask your health care provider what steps will be taken to help prevent infection. What happens during the procedure? ? An IV will be inserted into one of your veins. ? You may be given one or more of the following: ? A medicine to help you relax (sedative). ? A medicine to numb the throat (local anesthetic). ? You will lie on your left side on an exam table. ? Your health care provider will pass the endoscope through your mouth and down your esophagus. ? Your health care provider will use the scope to check the inside of your esophagus, stomach, and duodenum. Biopsies may be taken. ? The endoscope will be removed. The procedure may vary among health care providers and hospitals. What happens after the procedure? ? Your blood pressure, heart rate, breathing rate, and blood oxygen level will be monitored until you leave the hospital or clinic. ? Do not drive for 24 hours if you were given a sedative during your procedure. ? When your throat is no longer numb, you may be given some fluids to drink. ? It is up to you to get the results of your procedure. Ask your health care provider, or the department that is doing the procedure, when your results will be ready. Summary ? Upper endoscopy is a procedure to look inside the upper GI tract. ? During the procedure, an IV will be inserted into one of your veins. You may be given a medicine to help you relax. ? A medicine will be used to numb your throat. ? The endoscope will be passed through your mouth and down your esophagus. This information is not intended to replace advice given to you by your health care provider. Make sure you discuss any questions you have with your health care provider. Document Released: 10/28/2001 Jhonny (more content not included)...[facility] HospitalEvaluation noteNo assessment information availableOhiohealth [facility] Work Phone: Evaluation note* Diagnosis Paresthesia of left upper extremity- Primary Left carpal tunnel syndrome Carpal tunnel syndrome Cubital tunnel syndrome on left Left hand weakness Muscle weakness (generalized) documented in this encounter [facility] Narrative - Reported* Type Description Date Medical History Back injuries Medical History Spinal stenosis Medical History Neuropathic pain Surgical History back surgery Surgical History Lumbar fusion L4, L5, S1 2014 Surgical History knee surgery Surgical History LT knee scope Dr. Pereyra 1993 Surgical History Eye surgery B/L Surgical History eyes Hospitalization History see above surgical histo ry [place] [employer] Other InstructionsNot on filedocumented in this encounter ProMRocketmiles SystemInstructionsNot on filedocumented in this encounter [facility] History of Present Illness * Shivani Whitaker RN - 12/31/2019 12:00 PM EST Labs,ekg, etc. Sent to Dr. Campbell for review for upcoming surgery on January 14, 2020 documented in this encounter* Corine Monae RN - 01/15/2020 9:55 AM EST Pt. Discharged to home with personal belongings and scripts. * Fabián Campbell MD - 01/15/2020 7:48 AM EST [facility] Ortho Spine Attending Progress Note 01/15/2020 7:48 AM Jenaro Carrera [id number] SUBJECTIVE: Doing well. Pain controlled. Has been up walking. Voiding well. Arm symptoms resolved. OBJECTIVE Physical VITALS: BP 129/85 Pulse 65 Temp 98.4 F (36.9 C) (Oral) Resp 16 Ht 6' (1.829 m) Wt 199 lb (90.3 kg) SpO2 94% BMI 26.99 kg/m Dressing C/D/I NEUROLOGIC: Alert and Oriented x 3. Strength 5/5 HF, 5/5 Q, 5/5 TA, 5/5 EHL, 5/5 GS. 5/5 D, 5/5 B, 5/5 T, 5/5 WE, 5/5 WF, 5/5 I Sensation intact. Data CBC: Lab Results Component Value Date WBC 19.4 01/15/2020 RBC 4.89 01/15/2020 HGB 14.9 01/15/2020 HCT 45.0 01/15/2020 MCV 92.0 01/15/2020 MCH 30.5 01/15/2020 MCHC 33.1 01/15/2020 RDW 12.9 01/15/2020 PLT 248 01/15/2020 MPV 10.0 01/15/2020 BMP: Lab Results Component Value Date NA 136 01/15/2020 K 4.3 01/15/2020 CL 100 01/15/2020 CO2 24 01/15/2020 BUN 11 01/15/2020 CREATININE 0.77 01/15/2020 CALCIUM 9.4 01/15/2020 GFRAA >60 01/15/2020 LABGLOM >60 01/15/2020 GLUCOSE 136 01/15/2020 Current Inpatient Medications Current Facility-Administered Medications: gabapentin (NEURONTIN) capsule 600 mg, 600 mg, Oral, QAMAC gabapentin (NEURONTIN) capsule 1,200 mg, 1,200 mg, Oral, Nightly 0.9 % sodium chloride infusion, , Intravenous, Continuous sodium chloride flush 0.9 % injection 10 mL, 10 mL, Intravenous, 2 times per day sodium chloride flush 0.9 % injection 10 mL, 10 mL, Intravenous, PRN HYDROmorphone (DILAUDID) injection 0.25 mg, 0.25 mg, Intravenous, Q3H PRN OR HYDROmorphone (DILAUDID) injection 0.5 mg, 0.5 mg, Intravenous, Q3H PRN polyethylene glycol (GLYCOLAX) packet 17 g, 17 g, Oral, Daily sennosides-docusate sodium (SENOKOT-S) 8.6-50 MG tablet 1 tablet, 1 tablet, Oral, BID tiZANidine (ZANAFLEX) tablet 4 mg, 4 mg, Oral, Q8H PRN oxyCODONE (ROXICODONE) immediate release tablet 20 mg, 20 mg, Oral, Q4H PRN HYDROmorphone (DILAUDID) injection 0.5 mg, 0.5 mg, Intravenous, Once nicotine (NICODERM CQ) 14 MG/24HR 1 patch, 1 patch, Transdermal, Daily ondansetron (ZOFRAN) injection 4 mg, 4 mg, Intravenous, Q4H PRN ASSESSMENT AND PLAN 49 y.o. male status post C5-6 ACDF post op day # 1 1. PT- WBAT 2. Pain control 3. EPC 4. D/C plan for home today Fabián Campbell MD [facility] Spine Surgeon [phone] * Melvina Vernon RN - 01/14/2020 2:54 PM EST Pt admitted to room. Oriented to room, call light and bed mechanics. Side rails up x2. Call light within reach. Orders reviewed. * Ramakrishna Martinez RN - 01/14/2020 2:00 PM EST C/o discomfort on incision from neck brace Ramakrishna Wolf RN - 01/14/2020 1:45 PM EST Pt sleeping , hob elevated , * Ramakrishna Martinez RN - 01/14/2020 1:00 PM EST C/o nausea, zofran given * Viktoriya Bergeron RN - 01/14/2020 8:23 AM EST Pt arrives to pre-op stating he was unable to get neck brace. Dr Campbell notified and states will get neck brace fitted here. documented in this encounter Advance Directives No Advanced Directives Records FoundDocuments on File Type Date Recorded Patient Welding Foreman Expl anation Advance Directives and Living Will Power of Drafting Technician Documents on File Type Date Recorded Patient Welding Foreman Expl anation Advance Directives and Living Will Power of Drafting Technician Latest Code Status on File Code Status Date Activated Date Inactivated Comments Full Code 01/14/2020 2:43 PM Advance Directive Response Recorded Date/ Time Advance Directives No September 17, 2019 12:14pm Summary Purpose Family History No Family History Records FoundNo Family History Records FoundNo Family History Records FoundNo Family History Records FoundNo Family History Records FoundNo Family History Records Found Discharge Instructions * Instructions* Fabián Campbell MD - 01/15/2020 No lifting over 15 pounds x 6 wks Dry dressing changes daily x 1wk No driving while in collar. Ok to take collar off for eating and showering. Leave on for 2 wks otherwise Stiches are dissolvable and do not need to be removed Call for any fevers, wound redness, swelling or drainage after 4 days [phone] May shower in 2 days No tub baths for 3 weeks Fabián Campbell MD [facility] Orthopa[facility]ics and Spine Spine Surgeon [phone] * Attachments The following attachments cannot be sent through Care Everywhere. * Cervical Discectomy: Post-op (Uruguayan) * Cervical Spinal Fusion: Post-op (Uruguayan) documented in this encounter Assessments Diagnosis Cervical spondylosis with radiculopathy Cervical spondylosis with myelopathy Chief Complaint and Reason for Visit Chief Complaint M79.641 Additional Source Comments (unrecognized sect ion and content) No Status Records FoundNo Status Records FoundNo Status Records FoundNo Status Records FoundNo Status Records FoundNo Status Records Found INFORMATION SOURCE (unrecogn ized section and content) DATE CREATED AUTHOR 01/15/[address] [facility] DATE CREATED AUTHOR AUTHOR'S ORGANIZ ATION 01/21/2022 [facility] DATE CREATED AUTHOR AUTHOR'S ORGANIZ ATION 09/26/2022 [facility] DATE CREATED AUTHOR AUTHOR'S ORGANIZ ATION 12/09/2022 [facility] DATE CREATED AUTHOR AUTHOR'S ORGANIZ ATION 11/23/2023 [facility] EPIC DATE CREATED AUTHOR AUTHOR'S ORGANIZ ATION 12/18/2023 [facility] Reason for Visit (unrecogniz ed section and content) Status Reason Specialty Diagnoses / Procedures Referre d By Contact Referred To Contact Diagnoses Cervical spinal stenosis DX CERVICAL STENOSIS Procedures [place] ARTHRODESIS ANT INTERBODY INC DISCECTOMY CERVICAL BELOW C2 EA ADDL C 5-6 ACDF- [facility] 1 Fabián Palacios MD [address] [address] [facility] Reason Onset Date Comments NEW PATIENT REFERRAL 12/09/2023 NEW PATIENT QUESTIONS 12/09/2023 Reason Comments New Patient Patient presents for numbness and tingling in right arm. States he was referred here by pain management and had a recent scan done that shows compression on vertebrae which could be causing the numbness and tingling. Specialty Diagnoses / Procedures Referred By Uzma delaney Referred To Contact Neurology Diagnoses Numbness and tingling in both hands Taylor Andujar, [employer] COOK-LOAN EXAMINER [address] [place] [address] [facility] Neurology [address] [place] [address] Referral ID Status Reason Start Date Expiration Date Visits Requested Visits Authorized [id number] Pending Review Specialty Services Required 12/06/2023 12/05/2024 1 1 Care Teams (unrecognized sec tion and content) Team Status: Inactive Member Role Status Dates PHYSICIAN NO FAMILY Primary Care Provider Active FLORENCIO Figueroa Attending Provider Active Team Status: Active Member Role Status Dates PHYSICIAN NO FAMILY Primary Care Provider Active Aircraft Dispatcher Relationship Specialty Start Date End Date Marylin Vilalrreal APRN-LOAN EXAMINER [address] [place] [id number] PCP - General 08/15/17 Aircraft Dispatcher Relationship Specialty Start Date End Date Marylin Villarreal K[place]ST[place]-LOAN EXAMINER [address] [place] [id number] PCP - General 08/15/17 Aircraft Dispatcher Relationship Specialty Start Date End Date Terrance Davis MD PCP - General Family Medicine 06/08/23 Marylin Morales NP [address] [place] [address] Referring Physician Nurse Practitioner 06/08/23 Goals (unrecognized section and content) Goals may be documented in a n alternate section FOR RECORDS PERTAINING TO PATIENTS WHO ARE OR HAVE BEEN ENROLLED IN A CHEMICAL DEPENDENCY/SUBSTANCEABUSE PROGRAM, SOME INFORMATION MAY BE OMITTED. This clinical summary was aggregated from multiple sources. Caution should be exercised in using it in the provision of clinical care. This summary normalizes information from multiple sources, and as a consequence, information in this document may materially change the coding, format and clinical context of patient data. In addition, data may be omitted in some cases. CLINICAL DECISIONS SHOULD BE BASED ON THE PRIMARY CLINICAL RECORDS. [employer] provides no warranty or guarantee of the accuracy or completeness of information in this document.
== END 2023-12-26 09:18 | disposition home or self-care (01) ==
LOC: CT 09:17
PROVIDERS: PCP Nurse Practitioner; Visit Provider Nurse Practitioner
DX: R91.1 Solitary pulmonary nodule (principal)
CPT/HCPCS: 71250